=== PATIENT | male | born 1990 | race African-American/Black ===

== ENCOUNTER 2020-03-28 14:49 | Outpatient (REF) | payer SELFPAY | END 2020-03-28 14:50 | disposition home or self-care (01) | LOC: HO.LAB 14:49 | PROVIDERS: Visit Provider Internal Medicine | DX: Z20.828 Contact with and (suspected) exposure to other viral communicable diseases (principal) | CPT/HCPCS: 87635 ==

== ENCOUNTER 2023-11-01 14:17 | Observation (INO) | payer OTHER, SELFPAY ==
--- NOTE | ~2023-11-01 | XR_ITS ---
EXAMINATION: XR ABDOMEN KUB CLINICAL INDICATION: Incorrect count, intraoperative. COMPARISON: None available. TECHNIQUE: AP view of the abdomen. FINDINGS: There is mild shaped linear radiodense object projecting over the lower abdomen/pelvis roughly measures 12 cm concerning for possible metallic instruments foreign body in the patient or on the patient. No other foreign bodies identified. Nonspecific bowel gas pattern. XR/XR abdomen 1V IMPRESSION: Linear radiodense object projecting over the lower abdomen/pelvis concerning for POSSIBLE METALLIC INSTRUMENTS FOREIGN BODY IN THE PATIENT or on the patient clothing. Recommend clearing all object from patient's clothing and repeat x-ray. (Referring physician staff is being called, by physician staff assistance, to be alerted of the above critical findings and recommendations.) 11/02/2023 8:46 PM EM
--- NOTE | ~2023-11-01 | US_ITS ---
EXAMINATION: ULTRASOUND RIGHT LOWER QUADRANT CLINICAL INFORMATION: Right lower quadrant pain COMPARISON: None. TECHNIQUE: Grayscale ultrasound, color Doppler performed right lower quadrant. FINDINGS: Exam limited by bowel gas The appendix is not seen. Appendicitis cannot be excluded. No focal fluid collection. No inflammatory change. US/US appendix IMPRESSION: The appendix is not identified. Appendicitis cannot be excluded. No focal inflammatory change.
--- NOTE | ~2023-11-01 | XR_ITS ---
EXAMINATION: XR ABDOMEN KUB CLINICAL INDICATION: Mid abdominal pain following surgery. Question foreign body. COMPARISON: Most recent abdominal radiograph done earlier the same day. TECHNIQUE: AP views of the abdomen. FINDINGS: No radiopaque foreign body. Mild air and stool throughout the bowel. Nonobstructive bowel gas pattern. No abnormal soft tissue calcification. No acute osseous abnormality. XR/XR KUB IMPRESSION: 1. No radiopaque foreign body. 2. Nonobstructive bowel gas pattern.
--- NOTE | ~2023-11-01 | CT_ITS ---
EXAMINATION: CT ABDOMEN AND PELVIS WITH CONTRAST CLINICAL INFORMATION: Right lower quadrant pain. COMPARISON: Appendix ultrasound 11/01/2023 TECHNIQUE: Multidetector volumetric images were obtained from the superior aspect of the liver through the pubic symphysis following administration 100 mL of Omnipaque 350 intravenous contrast. Sagittal and coronal reformatted images were obtained on the technologist's workstation. Oral contrast: No This CT examination was performed using dose optimization techniques as appropriate, variously including the following: *Automated exposure control *Adjustment of mA and/or kV according to patient size (this includes techniques or standardized protocols for targeted exams where dose is matched to indication/reason for exam; i.e. extremities or head) *Use of iterative reconstruction technique DLP: 1206 mGy-cm FINDINGS: LUNG BASES: The visualized lung bases are unremarkable. LIVER, GALLBLADDER, AND BILIARY TREE: The liver is decreased in attenuation. Focus of hypoattenuation adjacent to the falciform ligament measuring 2.2 x 1.6 cm may represent focal fat. No biliary ductal dilatation is present. The gallbladder is unremarkable with no evidence of radiopaque gallstones, gallbladder wall thickening, or obvious pericholecystic inflammatory changes. PANCREAS: No ductal dilatation. SPLEEN: Not enlarged. ADRENAL GLANDS: No adrenal mass. KIDNEYS AND URETERS: The kidneys are symmetric in size and enhancement. No hydronephrosis. No perinephric stranding. BLADDER: Unremarkable. GASTROINTESTINAL TRACT: Thick-walled appendix with surrounding inflammatory changes in the right lower quadrant. The appendix measures up to 1.2 cm in thickness. No evidence of perforation or abscess. No small bowel obstruction. ABDOMINAL WALL: No significant hernia is appreciated. LYMPH NODES: Enlarged right lower quadrant mesenteric lymph nodes with largest measuring 1.2 x 1.3 cm and 1.1 x 1.7 cm. VASCULAR: Normal caliber abdominal aorta. PELVIC VISCERA: Prostatic utricle cyst. OSSEOUS STRUCTURES: No destructive bone lesions. CT/CT abdomen pelvis w IV con IMPRESSION: Findings most likely representing acute appendicitis. Enlarged right lower quadrant mesenteric lymph nodes. Surgical consultation is recommended. Hepatic steatosis with possible focal fatty infiltration along the falciform ligament.
[2023-11-01 15:05] VITALS: BP 131/89; PULSE 86; RESP 18; TEMP 36.2; O2SAT 99; BMI 39.7
--- NOTE | 2023-11-01 15:05 | ED.ABDPAIN ---
HPI - Abdominal Pain General Chief Complaint: Abdominal Pain Stated Complaint: Abd pain sent by urgent care Time Seen by Provider: 11/01/23 21:12 Source: patient Mode of arrival: ambulatory Limitations: no limitations History of Present Illness HPI narrative: 33 yold male with no pmh presents to the ED for umbilical to right lower quadrant pain for couple of days. Patient states nausea and vomitting. Patient denies any constipation, diarrhea, blood in stool, fever, chilss, or genitourinary symptoms. Related Data Home Medications ?Medication ?Instructions ?Recorded ?Confirmed bupropion HCl 300 mg 24 hr tablet, 300 mg PO DAILY 11/02/23 11/02/23 extended release Previous Rx's ?Medication ?Instructions ?Recorded oxycodone 5 mg tablet 5 mg PO Q4H PRN pain (scale score 11/03/23 7-10) #24 tabs Allergies Allergy/AdvReac Type Severity Reaction Status Date / Time No Known Allergies Allergy Verified 11/02/23 15:11 [No Known Allergies*] Review of Systems Review of Systems umbmlical and RLQ pain. Yes all other systems are reviewed and are negative PMF Past Medical History Medical History (Updated 11/02/23 @ 15:11 by Kristi Roy) Depression with anxiety ELLI (obstructive sleep apnea) Surgical History (Updated 11/02/23 @ 15:10 by Kristi Roy) H/O knee surgery S/P ACL repair Social History Social History Alcohol intake: current Alcohol intake frequency: other Comment: flat plate x-ray was done to verify no sharps were retained in the patient Patient Tobacco Use Status: Never used Tobacco Physical Exam ED Vital Signs: Vital Signs - 24 hr 11/01/23 16:43 11/01/23 21:12 11/02/23 01:43 Temperature 98.7 F 98.6 F 98.0 F Pulse Rate 82 96 76 Respiratory Rate 18 16 16 Blood Pressure 140/71 H 129/81 121/80 Pulse Oximetry 99 98 98 Oxygen Delivery Method Room Air Room Air Room Air 11/02/23 03:28 11/02/23 06:12 Temperature 98.2 F 98.8 F Pulse Rate 77 69 Respiratory Rate 16 16 Blood Pressure 122/69 132/64 Pulse Oximetry 97 98 Oxygen Delivery Method Room Air Room Air BMI result Body Mass Index 39.7 Const General: cooperative, healthy appearing, comfortable, no acute distress, well developed, alert, awake and Physically active Orientation/consciousness: oriented to person, oriented to place, oriented to time and patient oriented x3 [facility] Head: Yes normal to inspection, Yes No palpable skull fracture present, Yes normocephalic, Yes atraumatic and No abrasion Eyes General: appearance normal, both eyes and all related structures Neck Neck: Yes normal visual inspection, Yes full ROM, Yes no lymphadenopathy, Yes no meningeal signs, Yes trachea midline, Yes supple, No anterior neck swelling and No tender Chest Chest palpation & inspection: normal inspection of the chest Resp Effort & Inspection: normal respiratory effort and able to speak in complete sentences Auscultation: clear to auscultation bilaterally Cardio Jugular venous distension: no JVD Heart sounds: S1 normal heart sound present and S2 normal heart sound present GI Inspection: Yes normal to inspection Palpation (GI): Soft to palpation, not firm, Tenderness to palpation present (GI) in the RLQ and periumbilically, no guarding and not rigid General: No CVA tenderness and Yes no CVA tenderness Back/Spine/Pelvis Back: no CVA tenderness, No CVA tenderness and No back tenderness Skin General skin exam: no rashes or lesions noted, elasticity normal and turgor normal Neuro General: oriented to person, oriented to place, oriented to time, patient oriented x3, gait normal, tone normal, moves all extremities, Normal light touch and pain sensation, no meningeal signs, no focal motor deficits, CN's II-XI intact bilaterally and normal sensation to monofilament Extrem General: Yes normal to inspection, Yes full ROM and Yes capillary refill normal Psych Appearance: grossly normal, well kempt and not disheveled Course Course Course Narrative: This is an RME: Additional HPI, ROS, PE not included below will be deferred to primary provider. RME assessment and note performed by: Silvia Rodriguez PA-C This is a 55-rlgs[age]oxg-male, with no known medical problems, who presents to the ER with complaints of RLQ pain x2 days. Patient states that he has had right lower quadrant pain. Was seen at urgent care today and was told to come into the emergency room. Also endorsing nausea, vomiting and saw stool. No bloody or black stool. No urinary symptoms. Tenderness palpation in the right lower quadrant. No history of abdominal surgeries in the past. Plan: Labs, UA, ultrasound appendix ordered Medical Decision Making Medical Decision Making MDM Narrative: 33-year-old male with umbilical right lower quadrant tenderness without any genitourinary symptoms. Labs normal appendix ultrasound murmur or sent for CT scan of abdomen to make sure the appendicitis. 2:26am: CT scan shows appendicitis. Patient admitted to Dr. Ortiz of surgery. Patient given morphine for pain. Patient NPO Differential Diagnosis Differential Diagnoses: The differential diagnosis associated with the presentation includes (Appendicitis, cholecystitis) Admission/Observation Consideration of admission/observation: Escalation of care including admission/observation considered Consult Healthcare Provider Management of the patient was discussed with: [employer] Teacher (Dr. Kowalski) Lab Data [facility] Lab Attestation statement: I reviewed the patient's lab results. 11/01/23 16:16 11/01/23 16:16 Labs: Lab Results 11/01/23 11/02/23 Range/Units 16:16 00:29 WBC 9.6 (4.8-10.8) X10*3/uL RBC 5.34 (4.60-5.80) X10*6/uL Hgb 16.0 (14.0-18.0) g/dl Hct 47.1 (42.0-52.0) % MCV 88.2 (80.0-98.0) fL MCH 30.0 (27.0-33.0) pg MCHC 34.0 (31.0-36.0) g/dl RDW 13.1 (11.0-16.0) % Plt Count 320 (160-400) X10*3/uL MPV 10.0 (9.4-12.4) fL Immature Gran % (Auto) 0.5 H (0.0-0.4) % Neut % (Auto) 67.0 (45-73) % Lymph % (Auto) 23.0 (20-40) % [place] % (Auto) 7.8 (2-11) % Eos % (Auto) 1.2 (0-4) % Baso % (Auto) 0.5 (0-2) % Lymph # (Auto) 2.2 (1.2-4.9) X10*3/uL [place] # (Auto) 0.8 (0.1-1.2) X10*3/uL Eos # (Auto) 0.1 (0.0-0.4) X10*3/uL Baso # (Auto) 0.1 (0.0-0.2) X10*3/uL Abs Immat Gran (auto) 0.05 H (0.00-0.03) X10*3/uL Absolute Neuts (auto) 6.4 (2.0-8.3) x10*3/uL Absolute Nucleated RBC 0.000 (0.0-0.012) X10*3/uL Nucleated RBC % (auto) 0.0 (0.0-0.2) /100WBC Sodium 140 (135-145) mmol/L Potassium 4.0 (3.3-5.1) mmol/L Chloride 106 (96-108) mmol/L Carbon Dioxide 22 (22-29) mmol/L Anion Gap 16 (12-20) BUN 12 (9-16) mg/dL Creatinine 0.87 (0.5-1.4) mg/dL Estim Creat Clear Calc 179.9 Estimated GFR > 60 Random Glucose 92 (60-115) mg/dL Calcium 9.8 (8.4-10.2) mg/dL Total Bilirubin 0.6 (0.0-1.0) mg/dL Direct Bilirubin 0.2 (0.0-0.5) mg/dL AST 18 (5-37) U/L ALT 48 H (0-40) U/L Alkaline Phosphatase 55 (39-117) U/L Total Protein 8.0 (6.5-8.0) g/dL Albumin 4.6 (3.5-5.0) g/dL Lipase 21 (8-78) U/L Urine Color Yellow Urine Appearance Clear Urine pH 5.5 (5.0-9.0) Ur Specific [place] >= 1.030 H (1.005-1.025) Urine Protein 30 (1+) H (Neg-Trace) mg/dL Urine Glucose (UA) Negative (Negative) mg/dL Urine Ketones 15 (Negative) mg/dL Urine Blood Negative (Negative) Urine Nitrite Negative (Negative) Ur Leukocyte Esterase Negative (Negative) Urine RBC 0-2 (0-2) /HPF Urine WBC 0-5 (0-5) /HPF Ur Squamous Epith Cells 0-2 (0-2) /HPF Urine Bacteria None Seen (None Seen) Hyaline Casts 0-2 (0-2) /LPF Independent Interpretation I performed an independent interpretation of an: CT Scan Radiology Impression Discussion of test interpretation with radiology: I have reviewed the radiologist's reading. External Record Review External record reviewed: Other (Prior visits) Medications Administered Generic Name Dose Route Start Last Admin Trade Name Joy PRN Reason Stop Dose Admin Hydromorphone HCl 0.5 mg 11/02/23 08:20 11/02/23 08:47 Hydromorphone Hcl 1 Mg/Ml Syringe IVPUSH 0.5 mg Q4H PRN Administration Pain, Severe (Pain Scale 7-10) Protocol Lactated Ringer's 1,000 mls @ 100 mls/hr 11/02/23 08:30 11/03/23 04:52 Lr IVCONT Not Given .Q10H ANN Piperacillin Sod/Tazobactam 50 mls @ 100 mls/hr 11/02/23 08:30 11/03/23 03:19 Sod 3.375 gm/ Sodium Chloride IV Infused Q6H ANN Infusion Oxycodone HCl 5 mg 11/02/23 19:09 11/03/23 02:36 Oxycodone Hcl Immed Release 5 Mg Tablet PO 5 mg Q3H PRN Administration Pain, Severe (Pain Scale 7-10) Sodium Chloride 3 ml 11/02/23 16:00 11/03/23 00:18 0.9 % Sodium Chloride Flush 3 Ml Syringe IVFLUSH Not Given QSHIFT ANN Discontinued Medications Generic Name Dose Route Start Last Admin Trade Name Joy PRN Reason Stop Dose Admin Hydromorphone HCl 0.25 mg 11/02/23 15:58 11/02/23 18:35 Hydromorphone Hcl 0.5 Mg/0.5 Ml Syringe IVPUSH 11/02/23 21:59 0.25 mg Q5M PRN Administration Pain, Severe (Pain Scale 7-10) Protocol Iohexol 100 ml 11/01/23 22:20 11/01/23 22:21 Iohexol 350 Mg/Ml 100 Ml Infus..Btl IV 11/01/23 22:21 100 ml ONCE ONE Administration Ketorolac Tromethamine 30 mg 11/01/23 22:44 11/01/23 22:59 Ketorolac Tromethamine 30 Mg/Ml Vial IVPUSH 11/01/23 22:45 30 mg ONCE ONE Administration Morphine Sulfate 4 mg 11/02/23 02:25 11/02/23 02:47 Morphine Sulfate 4 Mg/Ml Cartridge IVPUSH 11/02/23 02:26 4 mg ONCE ONE Administration Protocol Critical Care Time Critical Care Time Critical Care Time: Yes Total Critical Care Time: 60 Attestation: positive appendicitis. IV pain meds ordered. Consulted with Surgeon Dr. Kowalski. Patient admitted to surgery service. Discharge Plan Discharge Clinical Impression: Acute appendicitis Patient Disposition: Admitted As Inpatient Interventions: Admission Worksheet (ED) Last Done: 11/02/23 15:14 Discharge Date/Time: 11/02/23 15:14
[2023-11-01 16:36] LABS: MANUAL DIFF FLAG NO
[2023-11-01 16:38] LABS: Basophils Absolute Auto 0.1 X10*3/uL (0.0-0.2); Basophils Percent Auto 0.5 % (0-2); Eosinophils Absolute Auto 0.1 X10*3/uL (0.0-0.4); Eosinophils Percent Auto 1.2 % (0-4); Hematocrit 47.1 % (42.0-52.0); Imm Gran Abs Auto 0.05 X10*3/uL (0.00-0.03); Imm Gran Pct Auto 0.5 % (0.0-0.4); Lymphocytes Absolute Auto 2.2 X10*3/uL (1.2-4.9); Mean Corpuscular Volume 88.2 fL (80.0-98.0); Monocytes Absolute Auto 0.8 X10*3/uL (0.1-1.2); Monocytes Percent Auto 7.8 % (2-11); Neutrophils Absolute Auto 6.4 x10*3/uL (2.0-8.3); Platelet Count 320 X10*3/uL (160-400); Red Blood Count 5.34 X10*6/uL (4.60-5.80); Red Cell Distribution Width 13.1 % (11.0-16.0); White Blood Count 9.6 X10*3/uL (4.8-10.8)
[2023-11-01 16:43] VITALS: BP 140/71; PULSE 82; RESP 18; TEMP 37.1; O2SAT 99
[2023-11-01 17:09] LABS: Alanine Aminotransferase 48 U/L (0-40); Albumin Level 4.6 g/dL (3.5-5.0); Alkaline Phosphatase 55 U/L (39-117); Anion Gap 16 (12-20); Aspartate Amino Transferase 18 U/L (5-37); Bilirubin Direct 0.2 mg/dL (0.0-0.5); Bilirubin Total 0.6 mg/dL (0.0-1.0); Blood Urea Nitrogen 12 mg/dL (9-16); Calcium 9.8 mg/dL (8.4-10.2); Carbon Dioxide 22 mmol/L (22-29); Chloride 106 mmol/L (96-108); Creatinine Clr Calc Pharmacy 179.9; Estimated Glomerular Filt Rate > 60; Glucose Random 92 mg/dL (60-115); Lipase 21 U/L (8-78); Sodium 140 mmol/L (135-145)
[2023-11-01 21:12] VITALS: BP 129/81; PULSE 96; RESP 16; TEMP 37; O2SAT 98
--- NOTE | 2023-11-01 21:47 | PC.NURSE ---
pt from home, ambulatory, a&ox4, respirations even and unlabored. pt reporting onset of middle upper epigastric pin x2 days. reports episodes of nausea and one episode of vomiting, with loose stool. pt reports poor PO intake due to nausea. pt denies chest pain and SOB. 20G placed in left AC.
[2023-11-01] MEDS: iohexoL 350 MG/ML 100 ML INFUS..BTL IV (22:21)
[2023-11-01] MEDS: Ketorolac Tromethamine 30 MG/ML VIAL IVPUSH (22:59)
[2023-11-02] VITALS (17 sets, daily range): BP systolic 121–155; BP diastolic 64–90; PULSE 69–86; RESP 14–19; TEMP 36.1–37.1; O2SAT 95–100
[2023-11-02 00:35] LABS: Appearance Urine Clear; Color Urine Yellow; Glucose Urine UA Negative (Negative); Leukocyte Esterase Urine Negative (Negative); Nitrite Urine Negative (Negative); PH 5.5 (5.0-9.0); Specific Gravity - Urine >= 1.030 (1.005-1.025); UMIC TRIGGER UACC YES; Urine Blood Negative (Negative); Urine Ketones 15 mg/dL (Negative); Urine Protein 30 (1+) mg/dL (Neg-Trace)
[2023-11-02 00:50] LABS: Bacteria Urine None Seen (None Seen); Hyaline Casts Urine 0-2 /LPF (0-2); RBC Urine 0-2 /HPF (0-2); Squamous Epithelial Cell Urine 0-2 /HPF (0-2); WBC Urine 0-5 /HPF (0-5)
[2023-11-02] MEDS: Morphine Sulfate 4 MG/ML CARTRIDGE IVPUSH (02:47)
--- NOTE | 2023-11-02 08:46 | PM.HPGS ---
History of Present Illness History of Present Illness Date of Service: 11/02/23 Chief complaint: acute appendicitis Narrative: Praful Poole is a 33 year old male with PMH significant for depression, ELLI on CPAP who presented to the ED with c/o RLQ abd pain. Patient reports he developed periumbilical pain on Wednesday. The pain eventually migrated to the RLQ and was associated with nausea and vomiting. The pain worsened prompting him to seek care at an urgent care center who recommended he be seen in the ED. Work up in the ED included CBC, BMP, LFTs which were WNL. CT scan abd/pelvis showed thick-walled, dilated appendix with surrounding inflammatory changes in the right lower quadrant. Review of Systems Constitutional: Constitutional: Denies chills and Denies fever(s) Cardiovascular: Cardiovascular: Denies chest pain, Denies palpitations and Denies dyspnea Respiratory: Respiratory: Denies dyspnea Gastrointestinal: Gastrointestinal: Reports as per HPI, Denies change in bowel habits and Denies diarrhea Integumentary/Breasts: Skin/Breast: Denies rash and Denies jaundice Endocrine: Endocrine: Denies palpitations [facility] Surgical History Surgical History (Updated 11/02/23 @ 08:49 by Denice Dial PA-C) S/P ACL repair Social History Social History Alcohol intake: current Alcohol intake frequency: a few times a month Smoked in Last 30 Days: No Use of substances other than those prescribed or required for medical reasons: No Advance Directives: No Advance Directives Information Provided: No Do you have a plan to hurt others: No Plan Meds Allergies Allergy/AdvReac Type Severity Reaction Status Date / Time No Known Allergies Allergy Verified 11/01/23 15:07 [No Known Allergies*] Active Medications: Current Medications Acetaminophen (Acetaminophen 325 Mg Tablet) 650 mg PO Q6H PRN PRN Reason: Pain, Mild (Pain Scale 1-3) Hydromorphone HCl (Hydromorphone Hcl 1 Mg/Ml Syringe) 0.5 mg IVPUSH Q4H PRN; Protocol PRN Reason: Pain, Severe (Pain Scale 7-10) Lactated Ringer's (Lr) 1,000 mls @ 100 mls/hr IVCONT .Q10H ANN Piperacillin Sod/Tazobactam (Sod 3.375 gm/ Sodium Chloride) 50 mls @ 100 mls/hr IV Q6H ANN Sodium Chloride (0.9 % Sodium Chloride Flush 3 Ml Syringe) 3 ml IVFLUSH QSHIFT ANN Home Medications ?Medication ?Instructions ?Recorded ?Confirmed ?Last Taken ?Type bupropion HCl 300 mg 24 hr tablet, 300 mg PO DAILY 11/02/23 11/02/23 Unknown History extended release Physical Exam Vital Signs: Vital Signs: Last Vital Signs Temp 98.8 F 11/02/23 06:12 Pulse 69 11/02/23 06:12 Resp 16 11/02/23 06:12 BP 132/64 11/02/23 06:12 Pulse Ox 98 11/02/23 06:12 O2 Del Method Room Air 11/02/23 06:12 BMI result Body Mass Index 39.7 Const: General: comfortable, no acute distress and alert Orientation/consciousness: patient oriented x3 Resp: Effort & Inspection: normal respiratory effort GI: Other: corpulent abdomen Inspection: No distended and No scar Palpation (GI): Soft to palpation, Tenderness to palpation present (GI) in the RLQ, at McBurney's point and with rebound tenderness; Rovsing's sign negative and no guarding Percussion: Yes normal to percussion Skin: General skin exam: no rashes or lesions noted and no jaundice Neuro: General: patient oriented x3 and moves all extremities Results Results Labs: Short CBC 11/01/23 Range/Units 16:16 WBC 9.6 (4.8-10.8) X10*3/uL Hgb 16.0 (14.0-18.0) g/dl Hct 47.1 (42.0-52.0) % Plt Count 320 (160-400) X10*3/uL BMP 11/01/23 16:16 Sodium 140 Potassium 4.0 Chloride 106 Carbon Dioxide 22 BUN 12 Creatinine 0.87 Calcium 9.8 Liver Function 11/01/23 Range/Units 16:16 Total Bilirubin 0.6 (0.0-1.0) mg/dL Direct Bilirubin 0.2 (0.0-0.5) mg/dL AST 18 (5-37) U/L ALT 48 H (0-40) U/L Alkaline Phosphatase 55 (39-117) U/L Albumin 4.6 (3.5-5.0) g/dL Urine 11/02/23 Range/Units 00:29 Urine Color Yellow Urine Appearance Clear Urine pH 5.5 (5.0-9.0) Ur Specific [place] >= 1.030 H (1.005-1.025) Urine Protein 30 (1+) H (Neg-Trace) mg/dL Urine Glucose (UA) Negative (Negative) mg/dL Abdomen CT scan report/results: report reviewed and image reviewed Assessment and Plan (1) Acute appendicitis: Status: Acute Plan 33 year old male with 4 day hx of abdominal pain now localized in the RLQ with marked RLQ tenderness point and CT scan showing dilated, thickened appendix consistent with acute appendicitis. The patient was admitted to the surgical service for further treatment of the acute appendicitis. Treatment options were discussed including observation and abx versus appendectomy. Risks, benefits, alternatives of laparoscopic possible open appendectomy were reviewed with the patient and included but not limited to bleeding, infection, numbness, pain, scarring, bowel or bladder injury or leak and the patient wishes to proceed. He will be added onto the OR schedule for today. He is NPO, started on IVF and IV zosyn. Quality Stroke Does the patient have a stroke diagnosis?: No VTE Prior VTE?: No VTE Risk Level:: Surgical - moderate VTE Device Contraindication: N/A - Device Ordered VTE Drug Contraindication: Treatment Not Indicated Procedures Date of Service Date of Service: 11/02/23
[2023-11-02] MEDS: Piperacillin Sodium/Tazobactam 3.375 GM in 0.9 % Sodium Chloride 50 ML IV ×3 (08:47→20:09)
[2023-11-02] MEDS: HYDROmorphone HCl 1 MG/ML SYRINGE 0.5 MG IVPUSH (08:47)
--- NOTE | 2023-11-02 08:49 | PHA.MEDREC ---
Pharmacy Consult ? Medication Reconciliation Pharmacy has completed the medication reconciliation.
--- NOTE | 2023-11-02 09:07 | PC.NURSE ---
medicated per the MAR, antibiotics infusing. requesting cpap machine as patient uses it for sleep. remains NPO at this time. call carlton within reach
[2023-11-02] MEDS: Lactated Ringers 1,000 ML 100 ML IVCONT ×2 (09:32→20:10)
--- NOTE | 2023-11-02 11:30 | PC.NURSE ---
Patient comes from ED with plan to get surgery for his appendicitis today. Patient is calm and cooperative with staff, independent ambulation, alert and oriented. Patient with 5/10 pain at this time in his right lower quadrant, tolerable at this time. States that the pain comes and goes, had woken him up a few times from sleep. Awaiting surgery time from OR at this time.
--- NOTE | 2023-11-02 15:18 | PC.NURSE ---
Patient arrived to preop from ED with one PRN angio, #20 Left AC. Site asymptomatic, flushed well.
--- NOTE | 2023-11-02 15:57 | P.CONAN_ITS ---
HPI - Anesthesia Eval Consult details Narrative: 33 M pf lap appy PMFSH Active Problems Active Problems: All Active Problems Acute appendicitis (Acute) Past Medical History Medical History (Updated 11/02/23 @ 15:11 by Kristi Roy) Depression with anxiety ELLI (obstructive sleep apnea) Family History Family history of problems with anesthesia: No Surgical History Surgical History (Updated 11/02/23 @ 15:10 by Kristi Roy) H/O knee surgery S/P ACL repair History of Problems with Anesthesia: No Social History Social History Alcohol intake: current Alcohol intake frequency: other Patient Tobacco Use Status: Never used Tobacco Meds Allergies Allergy/AdvReac Type Severity Reaction Status Date / Time No Known Allergies Allergy Verified 11/02/23 15:11 [No Known Allergies*] Active Medications: Current Medications Acetaminophen (Acetaminophen 325 Mg Tablet) 650 mg PO Q6H PRN PRN Reason: Pain, Mild (Pain Scale 1-3) Hydromorphone HCl (Hydromorphone Hcl 1 Mg/Ml Syringe) 0.5 mg IVPUSH Q4H PRN; Protocol PRN Reason: Pain, Severe (Pain Scale 7-10) Last Admin: 11/02/23 08:47 Dose: 0.5 mg Lactated Ringer's (Lr) 1,000 mls @ 100 mls/hr IVCONT .Q10H ANN Last Admin: 11/02/23 09:32 Dose: 100 mls/hr Piperacillin Sod/Tazobactam (Sod 3.375 gm/ Sodium Chloride) 50 mls @ 100 mls/hr IV Q6H ANN Last Infusion: 11/02/23 15:05 Dose: Infused Sodium Chloride (0.9 % Sodium Chloride Flush 3 Ml Syringe) 3 ml IVFLUSH QSHIFT [facility] Home Medications ?Medication ?Instructions ?Recorded ?Confirmed ?Last Taken ?Type bupropion HCl 300 mg 24 hr tablet, 300 mg PO DAILY 11/02/23 11/02/23 Unknown History extended release Exam Height,Weight and Vital Signs: Height 6 ft 2 in Weight 308 lb 13.882 oz Last Vital Signs Temp 97.1 F 11/02/23 15:12 Pulse 73 11/02/23 15:12 Resp 16 11/02/23 15:12 BP 154/84 H 11/02/23 15:12 Pulse Ox 98 11/02/23 15:12 O2 Del Method Room Air 11/02/23 15:12 Pertinent Lab Results Pertinent Lab Results: Laboratory Tests 11/01/23 11/02/23 16:16 00:29 WBC 9.6 RBC 5.34 Hgb 16.0 Hct 47.1 MCV 88.2 MCH 30.0 MCHC 34.0 RDW 13.1 Plt Count 320 MPV 10.0 Immature Gran % (Auto) 0.5 H Neut % (Auto) 67.0 Lymph % (Auto) 23.0 [place] % (Auto) 7.8 Eos % (Auto) 1.2 Baso % (Auto) 0.5 Lymph # (Auto) 2.2 [place] # (Auto) 0.8 Eos # (Auto) 0.1 Baso # (Auto) 0.1 Abs Immat Gran (auto) 0.05 H Absolute Neuts (auto) 6.4 Absolute Nucleated RBC 0.000 Nucleated RBC % (auto) 0.0 Sodium 140 Potassium 4.0 Chloride 106 Carbon Dioxide 22 Anion Gap 16 BUN 12 Creatinine 0.87 Estim Creat Clear Calc 179.9 Estimated GFR > 60 Random Glucose 92 Calcium 9.8 Total Bilirubin 0.6 Direct Bilirubin 0.2 AST 18 ALT 48 H Alkaline Phosphatase 55 Total Protein 8.0 Albumin 4.6 Lipase 21 Urine Color Yellow Urine Appearance Clear Urine pH 5.5 Ur Specific [place] >= 1.030 H Urine Protein 30 (1+) H Urine Glucose (UA) Negative Urine Ketones 15 Urine Blood Negative Urine Nitrite Negative Ur Leukocyte Esterase Negative Urine RBC 0-2 Urine WBC 0-5 Ur Squamous Epith Cells 0-2 Urine Bacteria None Seen Hyaline Casts 0-2 Airway Mallampati Class: II TM Dist: >3cm Neck ROM: Full Loose/Missing/Broken Teeth: No Assessment and Plan Assessment Anesthesia Assessment: Anesthesia Plan Discussed Final Anesthetic Review Family History of Problems with Anesthesia: No History of Problems with Anesthesia: No ASA Class: III Final Preanesthetic Review: No Changes in Pt Med Stat, Meds/Allgs Chart Reviewed, Consent Obtained/Reviewed and Anes Risks/Benef Reviewed Patient Risk: Intermediate Procedure Risk: Low Anesthetic Plan Anesthetic Plan: GA Disposition: Standard PACU
--- NOTE | 2023-11-02 17:44 | P.OP_ITS ---
Operative Note Operative Note Date of Service: 11/02/23 Narrative: Preoperative diagnosis: [] Acute appendicitis Postop diagnosis: [] Acute phlegmonous appendicitis Procedure [] laparoscopic appendectomy Surgeon: [] Dex Software Engineer Web Applications: [] Type of Anesthesia: [] General Indication for surgery: [] Very corpulent abdomen. Retrocecal phlegmonous locally inflamed appendix. No gross evidence of perforation. Findings: [] Patient brought to the operating room, placed on operative table supine position, after an adequate level of general anesthesia was induced, the patient's abdomen was prepped and draped in usual sterile fashion. Using a supraumbilical curvilinear incision, Andre technique was used to insufflate abdominal cavity to 15 mm of CO2. Lower midline and suprapubic ports were placed under direct laparoscopic view, the patient placed in Trendelenburg position, and tilted to the left. Findings were as noted above. Appendix was grasped and from surrounding retrocecal adhesions and brought onto the field. Mesentery was sequentially taken down using double firing of ligature device. Appendix was then transected the cecal base using endoscopic PHILL 45 stapler. Specimen was placed in an Endo-Catch bag, a retrieved through the umbilical port. Abdominal cavity was copiously irrigated, and secured hemostasis. All ports removed under direct laparoscopic view. Wounds were closed in the following manner; umbilical wound has fascia reapproximated using interrupted 0 Vicryl sutures. Skin wounds were closed using subcuticular 4-0 Vicryl sutures followed by Steri-Strips and sterile dressings. Wounds were infiltrated 0.5% Marcaine at completion. Sponge, needle, and instrument counts were reported correct. Patient tolerated the procedure well and emerged from anesthesia stable condition. EBL minimal
[2023-11-02] MEDS: HYDROmorphone HCl 0.5 MG/0.5 ML SYRINGE 0.25 MG IVPUSH ×3 (18:05→18:35)
--- NOTE | 2023-11-02 22:58 | PC.NURSE ---
[facility] called regarding post-op abdominal x-ray ? foreign body in abdomen. Patient is stable , no pain. Dr Helton notified, another repeat x-ray ordered stat, reading came back negative for foreign body, Dr Helton aware.
[2023-11-03] MEDS: oxyCODONE HCl Immed Release 5 MG TABLET PO ×2 (02:36→08:29)
[2023-11-03] MEDS: Piperacillin Sodium/Tazobactam 3.375 GM in 0.9 % Sodium Chloride 50 ML IV ×2 (02:37→08:24)
[2023-11-03 03:24] VITALS: BP 132/72; PULSE 60; RESP 16; TEMP 36; O2SAT 97
[2023-11-03 07:04] VITALS: BP 148/73; PULSE 64; RESP 18; TEMP 36.7; O2SAT 99
[2023-11-03] MEDS: Lactated Ringers 1,000 ML 100 ML IVCONT (08:25)
--- NOTE | 2023-11-03 09:24 | P.PNGS_ITS ---
Subjective Subjective Date of Service: 11/03/23 Interval history: Feels well, mild incisional pain. OOB to bathroom. Tolerating clears. Physical Exam 2 Vital Signs: Vital Signs: Last Vital Signs Temp 98.1 F 11/03/23 07:04 Pulse 64 11/03/23 07:04 Resp 18 11/03/23 07:04 BP 148/73 H 11/03/23 07:04 Pulse Ox 99 11/03/23 07:04 O2 Del Method CPAP 11/03/23 07:04 O2 Flow Rate 6 11/02/23 18:00 BMI result Body Mass Index 39.7 Const: General: comfortable, no acute distress and alert O rientation/consciousness: patient oriented x3 Resp: Effort & Inspection: normal respiratory effort GI: Inspection: No distended and Yes incision (dressings c/d/i) Palpation (GI): Soft to palpation and Tenderness to palpation present (GI) (mild incisional) Skin: General skin exam: no rashes or lesions noted Neuro: General: patient oriented x3 and moves all extremities Objective Data Active Medications Acetaminophen (Acetaminophen 325 Mg Tablet) 650 mg PO Q6H PRN PRN Reason: Pain, Mild (Pain Scale 1-3) Hydromorphone HCl (Hydromorphone Hcl 1 Mg/Ml Syringe) 0.5 mg IVPUSH Q4H PRN; Protocol PRN Reason: Pain, Severe (Pain Scale 7-10) Last Admin: 11/02/23 08:47 Dose: 0.5 mg Documented By: TONY Lactated Ringer's (Lr) 1,000 mls @ 100 mls/hr IVCONT .Q10H [facility] Last Admin: 11/03/23 08:25 Dose: 100 mls/hr Documented By: DENA Piperacillin Sod/Tazobactam (Sod 3.375 gm/ Sodium Chloride) 50 mls @ 100 mls/hr IV Q6H [facility] Last Infusion: 11/03/23 09:09 Dose: Infused Documented By: DENA Oxycodone HCl (Oxycodone Hcl Immed Release 5 Mg Tablet) 5 mg PO Q3H PRN PRN Reason: Pain, Severe (Pain Scale 7-10) Last Admin: 11/03/23 08:29 Dose: 5 mg Documented By: DENA Sodium Chloride (0.9 % Sodium Chloride Flush 3 Ml Syringe) 3 ml IVFLUSH QSHIFT ANN Last Admin: 11/03/23 08:22 Dose: Not Given Documented By: DENA Non-Admin Reason: IV Running Labs 11/01/23 16:16 11/01/23 16:16 Procedures Date of Service Date of Service: 11/03/23 Progress Note: A&P Assessment and plan (1) Acute appendicitis: Status: Acute (2) S/P laparoscopic appendectomy: Status: Acute Plan POD #1 s/p lap appy. Doing well post op, abd benign with appropriate post op tenderness, dressings clean and intact. Advance to solid diet, dc IVF. Encouraged oob/ambulation of halls. Stable for dc to home later today if tolerating diet. Patient comfortable with plan. Time Spent With Patient Time: Total time managing care of this patient today ____ minutes. Quality Stroke Does the patient have a stroke diagnosis?: No VTE Prior VTE?: No VTE Risk Level:: Surgical - moderate VTE Device Contraindication: N/A - Device Ordered VTE Drug Contraindication: Treatment Not Indicated
--- NOTE | 2023-11-03 11:41 | HO.POSTANES ---
Post Anesthesia Evaluation Post Anesthesia Evaluation Date of Service: 11/02/23 Vital Signs: Vital Signs Temp Pulse Resp BP Pulse Ox O2 Del Method 11/03/23 07:04 98.1 F 64 18 148/73 H 99 CPAP 11/03/23 03:24 96.8 F 60 16 132/72 97 CPAP Anesthesia: General Endotracheal-GETA Mental Status: Awake Pain Control: Satisfactory Nausea/Vomiting: None Hydration: Adequate Anesthesia-Related Issues: No Anes. Related Issues
--- NOTE | 2023-11-03 11:48 | MHC.CM.PN ---
Addendum entered by Maria Esther Noel RN 11/03/23 14:54: Medically cleared for dc home self care. Original Note: [facility] delivered. Patient lives in an apartment alone. Functionally independent. Uses CPAP. States he buys his supplies online and pays OOP. No PCP. [facility] PCP brochure provided. Discussed plan to establish care w/ PCP and request referral to sleep specialist to get a CPAP supplier and insurance coverage for supplies. No HCP. CM provided education and offered assistance. Patient declined. DP: Goal is home self care. Will dc later today if tolerating diet. Friend will provide transport home. CM will continue to follow.
--- NOTE | 2023-11-03 14:17 | P.DS_ITS ---
DS: Providers Provider Date of Service: 11/03/23 Date of admission: 11/02/23 08:20 Date of discharge: 11/03/23 Primary care physician: Mario Physician Attending physician on admission: Angelito Kowalski Attending physician on discharge: Angelito Kowalski DS: Diagnosis Discharge Diagnosis (1) Acute appendicitis: Status: Acute (2) S/P laparoscopic appendectomy: Status: Acute DS: Summary Hospital Course Hospital Course: HPI AT ADMISSION: Praful Poole is a 33 year old male with PMH significant for depression, ELLI on CPAP who presented to the ED with c/o RLQ abd pain. Patient reports he developed periumbilical pain on Wednesday. The pain eventually migrated to the RLQ and was associated with nausea and vomiting. The pain worsened prompting him to seek care at an urgent care center who recommended he be seen in the ED. Work up in the ED included CBC, BMP, LFTs which were WNL. CT scan abd/pelvis showed thick-walled, dilated appendix with surrounding inflammatory changes in the right lower quadrant. HOSPITAL COURSE: The patient was admitted to the surgical service for further treatment of the acute appendicitis. Treatment options were discussed and the patient wishes to proceed with surgery. He was added onto the OR schedule for that day. He was NPO, started on IVF and IV zosyn. On 11/02/23, a laparoscopic appendectomy was performed by Dr. Kowalski without complication. The patient tolerated the procedure well. He had an uncomplicated recovery course. On POD #1, he felt well with good pain control. HE was OOB and ambulating without difficulty. He was tolerating a solid diet. His abdomen was benign with appropriate post op tenderness and clean and intact dressings. He felt ready for discharge. He was discharged to home on 11/03/23 in stable condition. He is to follow up in the office in 1 week. Status at Discharge Functional status at discharge: independent ambulation Overall status at discharge: patient is progressing back to baseline Time Attestation Discharge Coordination Time (in mins): 30 Quality: Safe Use of Opioids Does Pt have an Active Cancer Diagnosis on the Problem List?: No Quality: Stroke Does the patient have a stroke diagnosis?: No Physical Exam Vital Signs: Vital Signs: Last Vital Signs Temp 98.1 F 11/03/23 07:04 Pulse 64 11/03/23 07:04 Resp 18 11/03/23 07:04 BP 148/73 H 11/03/23 07:04 Pulse Ox 99 11/03/23 07:04 O2 Del Method CPAP 11/03/23 07:04 O2 Flow Rate 6 11/02/23 18:00 BMI result Body Mass Index 39.7 Const: General: comfortable, no acute distress and alert Orientation/consciousness: patient oriented x3 Resp: Effort & Inspection: normal respiratory effort GI: Inspection: No distended and Yes incision (clean/intact dressings ) Palpation (GI): Soft to palpation and Tenderness to palpation present (GI) Skin: General skin exam: no rashes or lesions noted Neuro: General: patient oriented x3 and moves all extremities DS: Data Data Completed and Pending Pending studies at discharge: Pending at discharge 11/02/23 17:19 Surgical [PTH] Routine Discharge Plan Discharge Anticipated Discharge Date/Time: 11/03/23 07:43 Patient Disposition: Home, Self-Care Discharge Diagnosis: acute appendicitis Referrals: Angelito Kowalski MD [Physician] - 1 Week Physician,Mario Puente [Primary Care Provider] - 1 Week Discharge Medications: New docusate sodium [Colace] 100 mg capsule 100 mg PO BID Qty: 30 0RF oxycodone 5 mg tablet 5 mg PO Q4H PRN (Reason: pain (scale score 7-10)) Qty: 24 0RF Rx Instructions: Partial Fill upon patient request. Continued bupropion HCl 300 mg tablet extended release 24 hr 300 mg PO DAILY Discharge Orders: Discharge Order (Routine); Ordered 11/03/23 Ordered By: Denice Dial Diet: Advance to usual diet Activity on Discharge: No heavy lifting Stand Alone Forms: Patient Portal Discharge page, Work/School Release Print Language: Marshallese Activity Restrictions/Additional Instructions: Apply an ice pack for short intervals (20 minutes on, followed by at least 20 minutes off) for the first 2 days. Do not apply heat. Do not use creams, lotions, or topical antibiotics. These can cause infection or allergic reaction. Ok to shower 48 hours after your surgery. Remove dressings in 2 days and replace as needed. You have steri strips (small white cloth strips) covering your incision- these will fall off ~1 week. Follow up in office with Dr. Kowalski in 1 week. ([phone]) No heavy lifting (>10lbs) or strenuous activity! Call Your Doctor If: -Your temperature exceeds 101.5? F -You experience excessive pain or swelling -You have an unexpected reaction to medication -You have excessive bleeding -You experience continued vomiting/nausea -Your incision begins to separate -Your incision shows signs of infection such as increased redness, swelling, excessive pain, drainage (light blood or clear fluid is normal) or heat Care Plan Goals: Return to baseline health and resume normal activities following recovery period. Health Concerns: acute appendicitis Plan of Treatment: s/p laparoscopic appendectomy f/u in office in 1 week Assessment: doing well post op
== END 2023-11-03 16:19 | disposition home or self-care (01) ==
LOC: HO.ED 11-02 02:28 → HO.EDOVER 11-02 08:34 → HO.S3 11-02 18:45
PROVIDERS: Physician Assistant; Physician Assistant Medical; Admitting Provider Physician Assistant Surgical; Emergency Provider Internal Medicine; Visit Provider Surgery
PROC: 0DTJ4ZZ Resection of Appendix, Percutaneous Endoscopic Approach (ICD-10-PCS; CPT 44970; principal; 2023-11-02 16:00)
DX: K35.890 Other acute appendicitis without perforation or gangrene (principal); R10.31 Right lower quadrant pain; R11.2 Nausea with vomiting, unspecified; R10.33 Periumbilical pain; G47.33 Obstructive sleep apnea (adult) (pediatric); Z99.89 Dependence on other enabling machines and devices
CPT/HCPCS: 44970; 36415; 74018; 74177; 76705; 80048; 80076; 81001; 83690; 85025; 88304; 94660; 96361; 96365; 96366; 96375; 96376; 99221; 99285; J0131; J0330; J1100; J1170; J1885; J2250; J2270; J2405; J2543; J2704; J2795; J3010; J7120; Q9967

== ENCOUNTER → 2023-11-02 08:20 | Outpatient (BNV) | payer OTHER, SELFPAY | PROVIDERS: Admitting Provider Physician Assistant Surgical; Emergency Provider Internal Medicine; Visit Provider Physician Assistant Surgical | DX: K35.80 Unspecified acute appendicitis (principal) | CPT/HCPCS: 44970; 99024; 99222 ==

== ENCOUNTER 2023-11-09 14:05 | Outpatient (AMB) | payer OTHER, SELFPAY ==
--- NOTE | 2023-11-09 14:09 | MHC.OFFVIS ---
Intake Visit Reasons: s/p lap appy Intake Note: Patient here s/p lap appy. Reports incision healing well. Patient c/o: burning sensation from lower incision. No longer taking rx pain meds. 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 He is minimal incisional discomfort. He has tolerating a diet. Having bowel habits. He has a no other wound issues or complaints. pathology is benign. [facility] Medical History Depression with anxiety ELLI (obstructive sleep apnea) Surgical History S/P laparoscopic appendectomy (11/02/23) H/O knee surgery S/P ACL repair Social History Alcohol intake: current Alcohol intake frequency: other Comment: flat plate x-ray was done to verify no sharps were retained in the patient Patient Tobacco Use Status: Never used Tobacco service: No Physical Exam GI Other: Abdomen corpulent, soft, benign. All wounds clean dry and intact healing well Assessment & Plan Assessment & Plan (1) S/P laparoscopic appendectomy: Onset Date: 11/02/23 Comment: Dr. Angelito Kowalski Code(s): Z90.49 - Acquired absence of other specified parts of digestive tract Category: Surgical (2) Postop check: Code(s): Z09 - Encounter for follow-up examination after completed treatment for conditions other than malignant neoplasm Category: Surgical Plan Patient has been given local instructions, and will follow-up p.r.n.. He has a note to return to work on November 16 with 2 weeks light duty. All questions answered. Medications: Discontinued oxycodone Partial Fill upon patient request. Discontinued Reason: Patient no longer taking 5 mg PO Q4H PRN 24 tabs 0RF pain (scale score 7-10) Coding Level of Care Code Global (11556) Diagnoses S/P laparoscopic appendectomy Z90.49 Postop check Z09
== END 2023-11-09 14:28 | disposition home or self-care (01) ==
PROVIDERS: Visit Provider Surgery
DX: Z90.49 Acquired absence of other specified parts of digestive tract (principal); Z09 Encounter for follow-up examination after completed treatment for conditions other than malignant neoplasm
CPT/HCPCS: 99024

== ENCOUNTER → 2023-11-09 14:05 | Outpatient (BNVA) | payer OTHER, SELFPAY | PROVIDERS: Visit Provider Surgery ==

== ENCOUNTER 2023-12-06 09:33 | Outpatient (AMB) | payer OTHER, SELFPAY ==
--- NOTE | 2023-12-06 09:35 | MHC.PC.OV ---
Vital Signs 12/06/23 09:43 Height 6 ft 1 in Weight 300 lb BMI 39.6 BP 122/82 Blood Pressure Location Rt brachial Position Sitting Respiration 16 Pulse 89 Pulse Source Pulse Oximeter Temp Source Oral Pulse Oximetry (%) 98 Oxygen Delivery Method Room Air Intake Visit Reasons: Establish care and referral Intake Note: pt here to establish care and CPE. he is c/o bump on upper back and sleep apnea. Collarette Separator Required: No Allergies No Known Allergies [No Known Allergies*] Allergy (Verified 12/06/23 09:39) Tobacco use date assessed: 12/06/23 Dental Screening Dental Screen Date: 12/06/23 Did you have a dental visit in the last 12 months?: No Did you have a dental problem in the last 6 months where you did not have access to dental care?: Yes HPI HPI Comments History of Present Illness Details This is a 33-year-old male with a past medical history of severe sleep apnea and depression with anxiety presenting to establish care. He is due for a physical exam. ELLI-home sleep study diagnosed with severe ELLI around 2019. Paying out of pocket for online treatment and would like a referral to sleep medicine. He had appendix removed in October 2023 at [facility]. He is doing well postoperatively. He endorses a bump on his back since 2018. He thinks it has gotten a little bigger. It is tender touch. Denies trauma. His last practitioner thought it was a keloid. He is treated for depression and anxiety. He sought treatment online, but he has to pay out of pocket. He has a therapist and med provider. The patient takes Wellbutrin 300 mg XL daily. He's been taking this for four months. He is doing very well on it. In the past he tried Celexa which caused suicide ideation. Lexapro caused intolerable weight gain and sexual dysfunction. [facility] Medical History (Updated 12/06/23 @ 10:17 by RAPHAEL Thornton) Depression with anxiety ELLI (obstructive sleep apnea) Surgical History (Updated 11/09/23 @ 14:26 by Angelito Kowalski MD) S/P laparoscopic appendectomy (11/02/23) H/O knee surgery S/P ACL repair Family History (Updated 12/06/23 @ 09:59 by RAPHAEL Thornton) Mother Breast cancer Alcohol abuse Father Depression Alcohol abuse CAD (coronary artery disease) Maternal Grandmother Stomach cancer Social History Housing: Apartment Alcohol intake: current Alcohol intake frequency: other Comment: flat plate x-ray was done to verify no sharps were retained in the patient Patient Tobacco Use Status: Never used Tobacco e-Cigarette/Vaping Use: Never Used service: No Current occupational status: employed 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 Current occupational exposures/hazards: No Cognitive needs: No Hearing needs: No Vision needs: Yes Questionnaire PHQ-9 Over the last 2 weeks, how often have you been bothered by any of the following problems? 1. Little interest or pleasure in doing things: not at all 2. Feeling down, depressed, or hopeless: not at all 3. Trouble falling or staying asleep, or sleeping too much: more than half the days 4. Feeling tired or having little energy: more than half the days 5. Poor appetite or overeating: not at all 6. Feeling bad about yourself - or that you are a failure or have let yourself or your family down: not at all 7. Trouble concentrating on things, such as reading the newspaper or watching television: several days 8. Moving or speaking so slowly that other people could have noticed. Or the opposite - being so fidgety or restless that you have been moving around a lot more than usual: not at all 9. Thoughts that you would be better off or of hurting yourself in some way: not at all Total score: 5 Depression Screening Interpretation: Positive Depression Screening Follow-up: Existing condition and In treatment Depression Screening Done: Yes 26548 - PHQ-9 Billing: Yes Source: Developed by Drs. Iraj Yu, Cherie Valerio, David Mercado and colleagues, with an educational edwige from [employer]. Thrive Questionnaire Date Thrive assessed: 11/03/23 What is your living situation today?: I have a steady place to live Within the past 12 months, did the food you bought not last and you didn't have the money to get more?: Sometimes True Within the past 12 months, did you worry whether your food would run out before you got money to buy more?: Sometimes True Do you have trouble paying for medicines?: No Do you have trouble getting transportation to medical appointments?: No Do you have trouble paying your heating and electricity bill?: Yes Do you have trouble taking care of your child, family member or friend?: Yes Do you have trouble with day-to-day activities such as bathing, preparing meals, shopping, managing finances, etc.?: No Are you currently unemployed and looking for a job?: No Are you interested in more education?: Yes Please select the resources that you would like help with: None Currently or been in a relationship where the following occur: no concerns reported THRIVE Score: 3 AUDIT C Alcohol Use Questionnaire (AUDIT-C) 1. How often do you have a drink containing alcohol?: 2-3 times a week 2. How many drinks containing alcohol do you have on a typical day when you are drinking?: 3 or 4 3. How often do you have six or more drinks on one occasion?: Never Total Score: 4 CARRI-7 AMB Questionnaire CARRI-7 Date CARRI - 7 assessed: 12/06/23 Feeling nervous, anxious, or on edge: 2 = More than half the days Not being able to stop or control worryin = More than half the days Worrying too much about different things: 1 = Several days Trouble relaxin = Several days Being so restless that it is hard to sit still: 0 = Not at all Becoming easily annoyed or irritable: 1 = Several days Feeling afraid as if something awful might happen: 0 = Not at all Total CARRI-7 score (0-4 normal; 5-9 mild; 10-14 moderate; 15-21 severe): 7 Source: Developed by Drs. Iraj Yu, Cherie Valerio, David Mercado and colleagues, with an educational edwige from [employer]. CARRI-7 Assessment Billing CARRI-7 Assessment Tool: CARRI-7 Assessment 87518 Review of Systems Const Details: Constitutional: No unexplained weight loss, fever, chills, fatigue or night sweats. Eyes: No vision changes, blurry vision, double vision, eye pain, eye redness, eye discharge. ENT: No hearing loss, sneezing, congestion, runny nose or sore throat. Respiratory: No shortness of breath, cough or sputum production. Cardiovascular: No chest pain, chest pressure or chest discomfort. No palpitations or pedal edema. Gastrointestinal: No anorexia, nausea, vomiting or diarrhea. No abdominal pain or blood in stool. Genitourinary: No dysuria, hematuria, urinary frequency. Neurologic: No headache, dizziness, syncope, unilateral weakness, ataxia, numbness or tingling in the extremities. Musculoskeletal: No muscle pain, back pain, joint pain or swelling. Hematologic/Lymphatics: No bleeding or bruising. No painful lymph nodes. Skin: No rash or itching. Endocrine: No cold or heat intolerance. No polyuria or polydipsia. Psychiatric: see HPI. Physical exam (Primary Care) Vital Signs: Last Vital Signs Pulse 89 12/06/23 09:43 Resp 16 12/06/23 09:43 BP 122/82 12/06/23 09:43 Pulse Ox 98 12/06/23 09:43 Oxygen Delivery Method Room Air 12/06/23 09:43 BMI result Body Mass Index 39.6 Tobacco/Smoking Status: Tobacco use Status Tobacco use date assessed 12/06/23 12/06/23 09:54 Patient Tobacco Use Status Never used Tobacco 12/06/23 09:36 e-Cigarette/Vaping Use Never Used 12/06/23 09:54 PHQ-9: PHQ-9 Score PHQ-9: Total score 5 12/06/23 09:54 Depression Screening Interpretation: Positive Depression Screening Follow-up: Existing condition and In treatment Thrive Assessment: Date of Thrive Assessment Date Thrive assessed 11/03/23 12/06/23 09:36 Currently or been in a relationship where the following occur: no concerns reported Const Other: Constitutional: Alert, in no distress. Head: Normocephalic. Eyes: Pupils are equal, round and reactive to light. Extraocular muscles intact. Ear, Nose and Throat: Canals clear. TMs normal. Normal nasal mucosa. No nasal discharge. No oral lesions. Neck: Supple, Full range of motion. No lymphadenopathy. No palpable thyroid masses. Respiratory: Clear to auscultation. Cardiovascular: S1 S2 regular. No murmurs. Gastrointestinal: Abdomen soft, non-tender, non-distended. Normal bowel sounds. No palpable masses. Genitourinary: Pt deferred. States home exams normal. Neurologic: No focal neurological deficits. Symmetric patellar reflexes. Moves all extremities spontaneously. Sensation intact bilaterally. Skin: keloid-like lesion on upper back Musculoskeletal: No gross deformities. Normal range of motion. Extremities: Warm and well perfused. No clubbing, cyanosis or edema. 3+ peripheral pulses bilaterally. Psychiatric: Normal mood and affect Immunizations Boostrix Tdap 2.5 Lf unit-8 mcg-5 Lf/0.5 mL intramuscular syringe Performing Provider: RAPHAEL Thornton Performing Location: [facility] Administered by: Marlyn Rutledge RN on 12/06/23 10:27 Dose Route Admin Location Dispensed Lot Number Expiration Date NDC Director Immunology 0.5 mL IM Right Deltoid 0.5 mL [id number] 01/20/26 [id number] [email or web address] VIS Given Date VIS Provided VIS Publication Date 12/06/23 Single Vaccine 21 Eligibility Eligibility Date Funding Source Not [facility] Eligible 12/06/23 Private Assessment and Plan Assessment & Plan (1) Encounter for routine history and physical examination: Code(s): Z00.00 - Encounter for general adult medical examination without abnormal findings Plan: Patient is seen today for a routine physical. As part of this visit we reviewed the following issues, which are considered and essential part of preventative health in this age group: - Testicular cancer screening, which includes self exam teaching - Blood pressure screening annually - Cholesterol screening - Nutritional and exercise counseling - Counseling of injury prevention including fire prevention, smoke alarms and seat belt usage - Prevention of and/or testing for infectious diseases - declines screening - Education about skin cancer - Recommendations about immunizations - unsure of Tdap date ?2013 or 2014. Traveling to [place] soon. Administed Tdap. - Recommendation of an eye exam - Screening for substance abuse (2) ELLI (obstructive sleep apnea): Comment: with CPAP Code(s): G47.33 - Obstructive sleep apnea (adult) (pediatric) Plan: Continue CPAP. Weight loss recommended. Refer to sleep Medicine. (3) Skin Lesion: Code(s): L98.9 - Disorder of the skin and subcutaneous tissue, unspecified Plan: Referred to Dermatology. (4) Depression with anxiety: Code(s): F41.8 - Other specified anxiety disorders Plan: I told the patient I will take over his Wellbutrin. Refills sent. [facility] Orders: Orders Comprehensive Met. Panel Today E66.9 - Obesity, unspecified, Z00.00 - Encounter for general adult medical examination without abnormal findings, Z13.6 - Encounter for screening for cardiovascular disorders Lipid Panel Today E66.9 - Obesity, unspecified, Z00.00 - Encounter for general adult medical examination without abnormal findings, Z13.6 - Encounter for screening for cardiovascular disorders TSH reflex Free T4 Today E66.9 - Obesity, unspecified, Z00.00 - Encounter for general adult medical examination without abnormal findings, Z13.6 - Encounter for screening for cardiovascular disorders Complete Blood Count no Diff Today E66.9 - Obesity, unspecified, Z00.00 - Encounter for general adult medical examination without abnormal findings, Z13.6 - Encounter for screening for cardiovascular disorders TDaP Immunization Today Z23 - Encounter for immunization Referrals Sleep Medicine Referral G47.33 - Obstructive sleep apnea (adult) (pediatric) Psychology Referral F41.8 - Other specified anxiety disorders, Z00.00 - Encounter for general adult medical examination without abnormal findings Dermatology Referral G47.33 - Obstructive sleep apnea (adult) (pediatric), L98.9 - Disorder of the skin and subcutaneous tissue, unspecified Medications: New bupropion HCl XL 300 mg PO DAILY 90 tabs 1RF Coding Level of Care Code New Pt Prev Care 18-39yr(82851 Diagnoses Encounter for routine history and physical examination Z00.00 ELLI (obstructive sleep apnea) G47.33 Skin Lesion L98.9 Depression with anxiety F41.8 Additional Codes CARRI-7 Assessment Billing - CARRI-7 Assessment Tool: CARRI-7 Assessment 56937 ([id number])
[2023-12-06 09:43] VITALS: BP 122/82; PULSE 89; RESP 16; O2SAT 98; BMI 39.6
== END 2023-12-06 10:27 | disposition home or self-care (01) ==
PROVIDERS: PCP Physician Assistant Medical; Visit Provider Physician Assistant Medical
DX: Z00.00 Encounter for general adult medical examination without abnormal findings (principal); G47.33 Obstructive sleep apnea (adult) (pediatric); L98.9 Disorder of the skin and subcutaneous tissue, unspecified; Z23 Encounter for immunization; F41.8 Other specified anxiety disorders
CPT/HCPCS: 90471; 90715; 99385

== ENCOUNTER 2023-12-06 10:30 | Outpatient (REF) | payer OTHER, SELFPAY ==
[2023-12-06 12:25] LABS: Hematocrit 49.2 % (42.0-52.0); Hemoglobin 16.4 g/dl (14.0-18.0); Mean Corpuscular HGB Conc 33.3 g/dl (31.0-36.0); Mean Corpuscular Hemoglobin 29.3 pg (27.0-33.0); Mean Corpuscular Volume 87.9 fL (80.0-98.0); Mean Platelet Volume 10.4 fL (9.4-12.4); Platelet Count 345 X10*3/uL (160-400); Red Cell Distribution Width 13.2 % (11.0-16.0); White Blood Count 8.4 X10*3/uL (4.8-10.8)
[2023-12-06 13:24] LABS: Alanine Aminotransferase 72 U/L (0-40); Albumin Level 4.5 g/dL (3.5-5.0); Alkaline Phosphatase 55 U/L (39-117); Anion Gap 15 (12-20); Aspartate Amino Transferase 30 U/L (5-37); Bilirubin Total 0.3 mg/dL (0.0-1.0); Blood Urea Nitrogen 13 mg/dL (9-16); Calcium 9.9 mg/dL (8.4-10.2); Carbon Dioxide 24 mmol/L (22-29); Chloride 107 mmol/L (96-108); Cholesterol 227 mg/dL (<200); Estimated Glomerular Filt Rate > 60; Glucose Random 83 mg/dL (60-115); HDL Cholesterol 45 mg/dL (>40); LDL Cholesterol Calculated 151 mg/dL (<100); Potassium 3.9 mmol/L (3.3-5.1); Sodium 142 mmol/L (135-145); Total Protein 8.1 g/dL (6.5-8.0); Triglycerides 157 mg/dL (<150)
[2023-12-06 13:32] LABS: TSH reflex Free T4 1.62 uIU/mL (0.32-4.0)
== END 2023-12-06 10:31 | disposition home or self-care (01) ==
LOC: HO.WFDLDS 10:30
PROVIDERS: Visit Provider Physician Assistant Medical
DX: Z00.00 Encounter for general adult medical examination without abnormal findings (principal); Z13.6 Encounter for screening for cardiovascular disorders; E66.9 Obesity, unspecified
CPT/HCPCS: 36415; 80053; 80061; 84443; 85027

== ENCOUNTER 2024-01-27 10:51 | Outpatient (REF) | payer OTHER, SELFPAY ==
[2024-01-27 12:21] LABS: Alanine Aminotransferase 46 U/L (0-40); Albumin Level 4.6 g/dL (3.5-5.0); Alkaline Phosphatase 50 U/L (39-117); Aspartate Amino Transferase 20 U/L (5-37); Bilirubin Direct 0.2 mg/dL (0.0-0.5); Bilirubin Total 0.6 mg/dL (0.0-1.0); Total Protein 7.8 g/dL (6.5-8.0)
== END 2024-01-27 10:52 | disposition home or self-care (01) ==
LOC: HO.LAB 10:51
PROVIDERS: PCP Physician Assistant Medical; Visit Provider Physician Assistant Medical
DX: R79.89 Other specified abnormal findings of blood chemistry (principal)
CPT/HCPCS: 36415; 80076

== ENCOUNTER → 2024-01-27 14:54 | Outpatient (AMB) | payer OTHER, SELFPAY ==
--- NOTE | 2024-01-27 14:48 | A.OFFPC_ITS ---
Intake Visit Reasons: Discuss labs Allergies No Known Allergies [No Known Allergies*] Allergy (Verified 01/27/24 14:49) Tobacco use date assessed: 01/27/24 Dental Screening Dental Screen Date: 12/06/23 HPI HPI Comments History of Present Illness Details This is a 33-year-old male with a past medical history of severe sleep apnea, depression with anxiety, hyperlipidemia and elevated LFTs presenting to discuss lab results via telehealth. Elevated LFTs-see results below. Interval improvement since starting Wegovy and decreasing alcohol consumption. Upon further review he had a CT scan in October of 2023 when he was at the ER for appendicitis, and it showed hepatic steatosis. History of hyperlipidemia. ELLI-home sleep study diagnosed with severe ELLI around 2019. He has an appointment with sleep medicine but not until next year. His CPAP mask is 4 or 5 years old. He has taped together some of the supplies. Requests new CPAP. Patient prescribed Wegovy through [facility] wat[facility], but he would like to transfer the medication to this office. He has 2 more doses of 0.25 mg. Denies side effects. ROS: Gastrointestinal: No anorexia, nausea, vomiting or diarrhea. No abdominal pain PFSH Medical History (Updated 01/27/24 @ 15:59 by RAPHAEL Thornton) Obesity Hepatic steatosis LFT elevation Hyperlipidemia Depression with anxiety ELLI (obstructive sleep apnea) Surgical History (Updated 11/09/23 @ 14:26 by Angelito Kowalski MD) S/P laparoscopic appendectomy (11/02/23) H/O knee surgery S/P ACL repair Family History (Updated 12/06/23 @ 09:59 by RAPHAEL Thornton) Mother Breast cancer Alcohol abuse Father Depression Alcohol abuse CAD (coronary artery disease) Maternal Grandmother Stomach cancer Social History Housing: Apartment Alcohol intake: current Alcohol intake frequency: other Comment: flat plate x-ray was done to verify no sharps were retained in the patient Patient Tobacco Use Status: Never used Tobacco e-Cigarette/Vaping Use: Never Used service: No Current occupational status: employed 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 Current occupational exposures/hazards: No Cognitive needs: No Hearing needs: No Vision needs: Yes Questionnaire Thrive Questionnaire Date Thrive assessed: 11/03/23 CARRI-7 AMB Questionnaire CARRI-7 Date CARRI - 7 assessed: 12/06/23 Source: Developed by Drs. Iraj Yu, Cherie Valerio, David Mercado and colleagues, with an educational edwige from [employer] Physical exam (Primary Care) Tobacco/Smoking Status: Tobacco use Status Tobacco use date assessed 01/27/24 01/27/24 14:50 Patient Tobacco Use Status Never used Tobacco 01/27/24 14:50 e-Cigarette/Vaping Use Never Used 01/27/24 14:50 Thrive Assessment: Date of Thrive Assessment Date Thrive assessed 11/03/23 01/27/24 14:50 Telehealth Telehealth Telehealth Platform: Telephone Location of provider rendering services: practice address Location of patient: address on file Patient Identification confirmed using: Name, : Yes Telehealth method: voice only Patient verbally consented to treatment: Yes Patient verbally consented to billing insurance company: Yes Patient informed of any privacy concerns related to visit: Yes Minutes spent on Phone/Video with Pt.: 13 Results Reviewed Results Reviewed: Laboratory Tests 12/06/23 01/27/24 10:31 11:06 Random Glucose 83 AST 20 ALT 46 H Alkaline Phosphatase 50 Triglycerides 157 H Cholesterol 227 H LDL Cholesterol, Calc 151 H HDL Cholesterol 45 Assessment and Plan Assessment & Plan (1) Hepatic steatosis: Code(s): K76.0 - Fatty (change of) liver, not elsewhere classified (2) Hyperlipidemia: Code(s): E78.5 - Hyperlipidemia, unspecified Qualifiers: Hyperlipidemia type: mixed hyperlipidemia Qualified Code(s): E78.2 - Mixed hyperlipidemia (3) ELLI (obstructive sleep apnea): Comment: with CPAP Code(s): G47.33 - Obstructive sleep apnea (adult) (pediatric) (4) Obesity: Code(s): E66.9 - Obesity, unspecified Qualifiers: Obesity type: due to excess calories Obesity classification: unspecified obesity classification Serious obesity comorbidity presence: with serious comorbidity Qualified Code(s): E66.09 - Other obesity due to excess calories Plan Patient instructed to continue avoidance of alcohol, low-cholesterol diet and exercise at least 5 days per week for 30 minutes per day to promote weight loss. I will prescribe Wegovy. Side effects reviewed in detail with the patient. Re-evaluate fasting labs in 3 months. Check hepatitis serologies given elevated LFTs though this is likely due to alcohol consumption which he has decreased in hepatic steatosis. We will mail prescription for new CPAP/mask. He has an appointment in 2024 with sleep Medicine. Follow up in 3 months. Orders: Orders Hepatitis A,B,C Profile 3 Months K76.0 - Fatty (change of) liver, not elsewhere classified, R79.89 - Other specified abnormal findings of blood chemistry Lipid Panel 3 Months E78.5 - Hyperlipidemia, unspecified Alanine Aminotransferase 3 Months E78.5 - Hyperlipidemia, unspecified, R79.89 - Other specified abnormal findings of blood chemistry Aspartate Amino Transferase 3 Months E78.5 - Hyperlipidemia, unspecified, R79.89 - Other specified abnormal findings of blood chemistry Medications: New semaglutide (weight loss) (Wegovy) 0.5 mg (0.5 mL) subcut Q7D 2 mL 0RF CPAP (CPAP Machine/Device) As directed 1 ea 0RF Coding Level of Care Code Tele Est Pt Level 4 (99194) Complex EM visit Add On G2211 Diagnoses Hepatic steatosis K76.0 Mixed hyperlipidemia E78.2 Hyperlipidemia type: mixed hyperlipidemia ELLI (obstructive sleep apnea) G47.33 Obesity due to excess calories with serious comorbidity, unspecified classification E66.09 Obesity type: due to excess calories Obesity classification: unspecified obesity classification Serious obesity comorbidity presence: with serious comorbidity
== END ==
LOC: HO.HMGFM 14:54
PROVIDERS: PCP Physician Assistant Medical; Visit Provider Physician Assistant Medical
DX: K76.0 Fatty (change of) liver, not elsewhere classified (principal); E78.2 Mixed hyperlipidemia; G47.33 Obstructive sleep apnea (adult) (pediatric); E66.09 Other obesity due to excess calories
CPT/HCPCS: 99214

== ENCOUNTER 2024-03-28 14:39 | Outpatient (AMB) | payer OTHER, SELFPAY ==
--- NOTE | 2024-03-28 15:09 | MHC.OFFVIS ---
Vital Signs 03/28/24 15:10 Height 6 ft 1 in Weight 280 lb BMI 36.9 BP 118/78 Blood Pressure Location Rt brachial Position Sitting Intake Visit Reasons: INP: ELLI( Per MD) Intake Note: patient has a cpap and needs to establish care for his supplies Allergies No Known Allergies [No Known Allergies*] Allergy (Verified 03/28/24 15:12) Medication List - Last Reconciled 03/28/24 by Emily Moses MD bupropion HCl XL 300 mg PO DAILY CPAP (CPAP Machine/Device) As directed semaglutide (weight loss) (Wegovy) 1 mg (0.5 mL) subcut Q7D HPI Comments Details: 33y/o comes for sleep evaluation . Main complaints-Obstructive sleep apnea diagnosed in 2019 - on CPAP but does not get supplies He is responding to CPAP but due to lack of supplies unable to use it. Sleep questionnaire-without CPAP Difficulty falling asleep-yes Difficulty staying asleep-yes Number of [id number] Snoring-yes Witnessed apneas-yes Gasping arousals-yes Nocturia-no GERD-no Vivid dreams-no Acting out dreams -/no Abnormal behavior in sleep-no ABnormal movements in sleep-yes Morning headaches-no Excessive daytime sleepiness-yes Daytime naps- no restless legs- no Hallucinations- /no sleep paralysis- no Drop attacks- /no Sleep study-yes Results AHI O2 CPAP yes Sleep Hygiene- Sleep time 9pm Wake time 6am coffee/stimulant use none Phone Electronics use- some Exercise- none Bedroom comfort- good ESS PFSH Medical History Obesity Hepatic steatosis LFT elevation Hyperlipidemia Depression with anxiety ELLI (obstructive sleep apnea) Surgical History S/P laparoscopic appendectomy (11/02/23) H/O knee surgery S/P ACL repair Family History Mother Breast cancer Alcohol abuse Father Depression Alcohol abuse CAD (coronary artery disease) Maternal Grandmother Stomach cancer Social History Housing: Apartment Alcohol intake: current Alcohol intake frequency: other Comment: flat plate x-ray was done to verify no sharps were retained in the patient Patient Tobacco Use Status: Never used Tobacco e-Cigarette/Vaping Use: Never Used service: No Current occupational status: employed 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 Current occupational exposures/hazards: No Cognitive needs: No Hearing needs: No Vision needs: Yes Physical Exam Vital Signs: Last Vital Signs BP 118/78 03/28/24 15:10 BMI result Body Mass Index 36.9 Const General: cooperative, healthy appearing and comfortable Nutritional Appearance: obese Orientation/consciousness: patient oriented x3 Eyes Pupils: Equal, round and reactive pupils present Neuro Other: Mallampatti -grade 4 General: patient oriented x3, gait normal, tone normal, moves all extremities and no focal motor deficits Cranial nerves: Yes Facial sensation intact/muscles of mastication intact, Yes Equal, round and reactive pupils present, Yes Bilaterally intact EOM present, Yes Nystagmus not present, Yes Normal facial strength present, Yes Midline tongue present and Yes Symmetric palate elevation present Cognition (Neuro): normal cognition Gait exam (Neuro): Normal gait present Motor exam (neuro): 5/5 motor strength present throughout and Normal motor muscle tone present throughout Assessment & Plan Assessment & Plan (1) ELLI (obstructive sleep apnea): Comment: with CPAP Code(s): G47.33 - Obstructive sleep apnea (adult) (pediatric) Category: Medical Plan Reevaluate patient with a home sleep test Continue CPAP Orders: Orders RT home sleep study Today G47.10 - Hypersomnia, unspecified, G47.33 - Obstructive sleep apnea (adult) (pediatric), R06.83 - Snoring Coding Level of Care Code New Pt Level 4 (33427) Diagnoses ELLI (obstructive sleep apnea) G47.33
[2024-03-28 15:10] VITALS: BP 118/78; BMI 36.9
== END 2024-03-28 15:33 | disposition home or self-care (01) ==
PROVIDERS: PCP Physician Assistant Medical; Visit Provider Psychiatry & Neurology Neurology
DX: G47.33 Obstructive sleep apnea (adult) (pediatric) (principal)
CPT/HCPCS: 99204

== ENCOUNTER → 2024-03-28 14:39 | Outpatient (BNVA) | payer OTHER, SELFPAY | PROVIDERS: PCP Physician Assistant Medical; Visit Provider Psychiatry & Neurology Neurology ==

== ENCOUNTER → 2024-04-18 13:50 | Outpatient (BNVA) | payer OTHER, SELFPAY | PROVIDERS: PCP Physician Assistant Medical; Visit Provider Surgery ==

== ENCOUNTER 2024-04-21 08:00 | Outpatient (AMB) | payer OTHER, SELFPAY ==
--- NOTE | 2024-04-21 09:22 | A.OFFVIS_ITS ---
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 BMI 36.9: Details: Start time: 9.16am, End time: 10.01am ?I spent 40 minutes speaking with the patient on the phone plus an additional 5 minutes reviewing and updating records for a total of 45 minutes HPI Comments Details: Previous weight loss efforts: Wegovy for 5 months: 42lbs Wakes up: 5.30am, Sleeps: 9.15pm Breakfast: fruits Lunch: skips Dinner: 6pm (sea food, rice, beans, vegetables) Snacks: fast food around 1pm, 8pm (ice cream) Exercise: free weights Fluids: coffee: none, tea: 3/wk: 32oz (honey, or cold outside), soda: Nancy phil: 1/wk, juice: apple juice/orange juice 3-4/wk, ETOH: 2/wk (vodka or tequila with juice, 2-3 cups) PFSH Medical History (Updated 03/28/24 @ 15:29 by Emily Moses MD) Obstructive sleep apnea of adult Hypersomnia Snoring Obesity Hepatic steatosis LFT elevation Hyperlipidemia Depression with anxiety ELLI (obstructive sleep apnea) Surgical History S/P laparoscopic appendectomy (11/02/23) H/O knee surgery S/P ACL repair Family History (Updated 04/18/24 @ 14:07 by Winnie Kamara CMA) Mother Breast cancer Alcohol abuse Father Depression Alcohol abuse CAD (coronary artery disease) Maternal Grandmother Stomach cancer Son No problems noted. Son No problems noted. 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 Current occupational exposures/hazards: No Cognitive needs: No Hearing needs: No Vision needs: Yes Telehealth Telehealth Telehealth Platform: Telephone Location of provider rendering services: practice address Location of patient: address on file Patient Identification confirmed using: Name, : Yes Telehealth method: voice only Patient verbally consented to treatment: Yes Patient verbally consented to billing insurance company: Yes Patient informed of any privacy concerns related to visit: Yes Minutes spent on Phone/Video with Pt.: 45 Assessment & Plan Assessment & Plan (1) Obesity: Code(s): E66.9 - Obesity, unspecified Category: Medical Qualifiers: Obesity type: due to excess calories Obesity classification: unspecified obesity classification Serious obesity comorbidity presence: with serious comorbidity Qualified Code(s): E66.09 - Other obesity due to excess calories Plan: 1.? Plan for lap sleeve gastrectomy. If diaphragmatic or ventral hernias are present at time of surgery, these will be repaired laparoscopically as well. Risks and complications include possible conversion to an open procedure, anas tomotic leak, bleeding requiring transfusion, small bowel obstruction, , DVT and pulmonary embolism, cardiac, or pulmonary complications, as extermination supervisor complications such as anastomotic ulcer, insufficient weight loss and vitamin deficiencies. I emphasized the importance of close follow-up, adherence to instructions and good communication. 2. You will receive a link of our software ken to generate an individualized nutritional and exercise plan specific for you. Please send me a screenshot of the plans you will generate Meal to include lean meat (beef, fish, pork, turkey, chicken), or khmer yogurt, or egg whites, or beans with a salad with olive oil and fruits (berries, pears, apples, kiwi). Avoid salt, breads, potatoes, rice, pasta, desserts. ?3. If you choose shakes, each shake would be drunk slowly, like coffee in a period of 2 hours. ?4. If you choose bars, cut each bar in 4 pieces and eat each piece in 30min ?to make each bar last 2 hours. ?5. I emphasized the importance of measuring accurately the food portion and measure it when serving the food in plate ?6. The meal portions include a specific number of forks of meat and salad. You always eat the meat portion but you can replace up to half of salad/vegetables portion with rice, potatoes or pasta, or a fruit ?if you like. The less you do it the better weight loss will be. ?7. One full-size fork is what it can be scooped on the fork without falling aside and not what can be bit with the fork. Use regular forks like those you find in a typical restaurant. ?8.? Please send me weight measurements as soon as possible and then once a week. Always include your diet and exercise plan. 9. The best choice would be to purchase a stationary bike, elliptical or treadmill at home that can track calories. Let me know if you do so I can give you an exercise plan. ?10. Goal is to lose at least 1.5-2lbs per week ?11. Goal to lose 10% of your weight before surgery, which is about 28lbs. Ultimate weight goal: 250lbs before surgery 12. Please follow the diet plan exactly without any change. If you don't like something about the plan or you feel hungry you need to communicate with me so I can help you revise the plan. You should not change the plan yourself. 13. To be scheduled for EGD to assess the stomach's anatomy. The possibility of biopsies was discussed. Patient needs to avoid use of NSAIDs and aspirin for 1 week prior to EGD. Risks of perforation and bleeding was discussed with the patient. This will be an outpatient procedure with IV sedation. Orders: Orders Prothrombin Time INR Today E66.09 - Other obesity due to excess calories, E78.2 - Mixed hyperlipidemia, G47.33 - Obstructive sleep apnea (adult) (pediatric), K76.0 - Fatty (change of) liver, not elsewhere classified, R79.89 - Other specified abnormal findings of blood chemistry Vitamin B1 Today E66.09 - Other obesity due to excess calories, E78.2 - Mixed hyperlipidemia, G47.33 - Obstructive sleep apnea (adult) (pediatric), K76.0 - Fatty (change of) liver, not elsewhere classified, R79.89 - Other specified abnormal findings of blood chemistry Lipid Panel Today E66.09 - Other obesity due to excess calories, E78.2 - Mixed hyperlipidemia, G47.33 - Obstructive sleep apnea (adult) (pediatric), K76.0 - Fatty (change of) liver, not elsewhere classified, R79.89 - Other specified abnormal findings of blood chemistry Vitamin B12 Today E66.09 - Other obesity due to excess calories, E78.2 - Mixed hyperlipidemia, G47.33 - Obstructive sleep apnea (adult) (pediatric), K76.0 - Fatty (change of) liver, not elsewhere classified, R79.89 - Other specified abnormal findings of blood chemistry Partial Thromboplastin Time Today E66.09 - Other obesity due to excess calories, E78.2 - Mixed hyperlipidemia, G47.33 - Obstructive sleep apnea (adult) (pediatric), K76.0 - Fatty (change of) liver, not elsewhere classified, R79.89 - Other specified abnormal findings of blood chemistry Ferritin Today E66.09 - Other obesity due to excess calories, E78.2 - Mixed hyperlipidemia, G47.33 - Obstructive sleep apnea (adult) (pediatric), K76.0 - Fatty (change of) liver, not elsewhere classified, R79.89 - Other specified abnormal findings of blood chemistry Zinc Today E66.09 - Other obesity due to excess calories, E78.2 - Mixed hyperlipidemia, G47.33 - Obstructive sleep apnea (adult) (pediatric), K76.0 - Fatty (change of) liver, not elsewhere classified, R79.89 - Other specified abnormal findings of blood chemistry IRON PROFILE Today E66.09 - Other obesity due to excess calories, E78.2 - Mixed hyperlipidemia, G47.33 - Obstructive sleep apnea (adult) (pediatric), K76.0 - Fatty (change of) liver, not elsewhere classified, R79.89 - Other specified abnormal findings of blood chemistry Comprehensive Met. Panel Today E66.09 - Other obesity due to excess calories, E78.2 - Mixed hyperlipidemia, G47.33 - Obstructive sleep apnea (adult) (pediatric), K76.0 - Fatty (change of) liver, not elsewhere classified, R79.89 - Other specified abnormal findings of blood chemistry TSH reflex Free T4 Today E66.09 - Other obesity due to excess calories, E78.2 - Mixed hyperlipidemia, G47.33 - Obstructive sleep apnea (adult) (pediatric), K76.0 - Fatty (change of) liver, not elsewhere classified, R79.89 - Other specified abnormal findings of blood chemistry Vitamin A Today E66.09 - Other obesity due to excess calories, E78.2 - Mixed hyperlipidemia, G47.33 - Obstructive sleep apnea (adult) (pediatric), K76.0 - Fatty (change of) liver, not elsewhere classified, R79.89 - Other specified abnormal findings of blood chemistry Hemoglobin A1c Today E66.09 - Other obesity due to excess calories, E78.2 - Mixed hyperlipidemia, G47.33 - Obstructive sleep apnea (adult) (pediatric), K76.0 - Fatty (change of) liver, not elsewhere classified, R79.89 - Other specified abnormal findings of blood chemistry Type and Screen Today E66.09 - Other obesity due to excess calories, E78.2 - Mixed hyperlipidemia, G47.33 - Obstructive sleep apnea (adult) (pediatric), K76.0 - Fatty (change of) liver, not elsewhere classified, R79.89 - Other specified abnormal findings of blood chemistry C Reactive Protein Today E66.09 - Other obesity due to excess calories, E78.2 - Mixed hyperlipidemia, G47.33 - Obstructive sleep apnea (adult) (pediatric), K76.0 - Fatty (change of) liver, not elsewhere classified, R79.89 - Other specified abnormal findings of blood chemistry Vitamin D 25-OH Total Today E66.09 - Other obesity due to excess calories, E78.2 - Mixed hyperlipidemia, G47.33 - Obstructive sleep apnea (adult) (pediatric), K76.0 - Fatty (change of) liver, not elsewhere classified, R79.89 - Other specified abnormal findings of blood chemistry Complete Blood Count Auto Diff Today E66.09 - Other obesity due to excess calories, E78.2 - Mixed hyperlipidemia, G47.33 - Obstructive sleep apnea (adult) (pediatric), K76.0 - Fatty (change of) liver, not elsewhere classified, R79.89 - Other specified abnormal findings of blood chemistry Insulin Today E66.09 - Other obesity due to excess calories, E78.2 - Mixed hyperlipidemia, G47.33 - Obstructive sleep apnea (adult) (pediatric), K76.0 - Fatty (change of) liver, not elsewhere classified, R79.89 - Other specified abnormal findings of blood chemistry
[2024-04-21 09:36] VITALS: BMI 36.8
== END 2024-04-21 10:02 | disposition home or self-care (01) ==
LOC: HO.HBS 08:00
PROVIDERS: PCP Physician Assistant Medical; Visit Provider Surgery
DX: E66.09 Other obesity due to excess calories (principal)
CPT/HCPCS: 99204

== ENCOUNTER 2024-04-27 09:07 | Outpatient (AMB) | payer OTHER, SELFPAY ==
--- NOTE | 2024-04-27 09:20 | A.OFFVIS_ITS ---
Vital Signs 04/27/24 09:24 Height 6 ft 1 in Weight 285 lb 8 oz BMI 37.7 BP 106/50 L Blood Pressure Location Rt brachial Position Sitting Respiration 14 Pulse 90 Pulse Source Pulse Oximeter Pulse Oximetry (%) 98 Oxygen Delivery Method Room Air Intake Visit Reasons: hepatic steatosis, hyperlipidemia Intake Note: f/u labs and hepatic steatosis Allergies No Known Allergies [No Known Allergies*] Allergy (Verified 04/27/24 09:23) HPI Comments Details: This is a 33-year-old male with a past medical history of severe sleep apnea, depression with anxiety, hyperlipidemia and hepatic steatosis presenting for follow up. Hepatic steatosis/elevated LFTs- patient went on Wegovy. He has decreased alcohol to less than 7 drinks per week. Unfortunately insurance stopped covering Wegovy since I am not endocrinology or weight loss management. He had his 1st appointment with the weight loss management clinic at [facility]. Patient says he has an EGD scheduled. He has a history of hyperlipidemia. ELLI-home sleep study diagnosed with severe ELLI around 2019. He saw sleep medicine, and he has a sleep study scheduled this month. He is using a CPAP currently. ROS: Constitutional: No unexplained weight loss, fever, chills Respiratory: No shortness of breath Cardiovascular: No chest pain Gastrointestinal: No anorexia, nausea, vomiting or diarrhea. No abdominal pain Endocrine: No cold or heat intolerance. No polyuria or polydipsia. Physical exam: Constitutional: Alert, in no distress. Neck: Supple, Full range of motion. No lymphadenopathy Respiratory: Clear to auscultation. Cardiovascular: S1 S2 regular. No murmurs. Gastrointestinal: Abdomen soft, non-tender, non-distended. Normal bowel sounds. No palpable masses. Psychiatric: Normal mood and affect [facility] Medical History (Updated 03/28/24 @ 15:29 by Emily Moses MD) Obstructive sleep apnea of adult Hypersomnia Snoring Obesity Hepatic steatosis LFT elevation Hyperlipidemia Depression with anxiety ELLI (obstructive sleep apnea) Surgical History S/P laparoscopic appendectomy (11/02/23) H/O knee surgery S/P ACL repair Family History (Updated 04/18/24 @ 14:07 by Winnie Kamara CMA) Mother Breast cancer Alcohol abuse Father Depression Alcohol abuse CAD (coronary artery disease) Maternal Grandmother Stomach cancer Son No problems noted. Son No problems noted. 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 Current occupational exposures/hazards: No Cognitive needs: No Hearing needs: No Vision needs: Yes Physical Exam Vital Signs: Last Vital Signs Pulse 90 04/27/24 09:24 Resp 14 04/27/24 09:24 BP 106/50 L 04/27/24 09:24 Pulse Ox 98 04/27/24 09:24 Oxygen Delivery Method Room Air 04/27/24 09:24 BMI result Body Mass Index 37.7 Assessment & Plan Assessment & Plan (1) Hepatic steatosis: Code(s): K76.0 - Fatty (change of) liver, not elsewhere classified Category: Medical Plan: We discussed with the patient should avoid alcohol and follow a low-cholesterol, low-fat diet. Diet should be predominantly lean proteins and vegetables and fibrous fruits. Patient agreeable to recheck liver enzymes and have liver ultrasound with elastography. (2) ELLI (obstructive sleep apnea): Comment: with CPAP Code(s): G47.33 - Obstructive sleep apnea (adult) (pediatric) Category: Medical Plan: Sleep study scheduled. Seen by sleep medicine. He is using a CPAP. Continue efforts at weight loss. Continue to decrease alcohol consumption and ultimately he should avoid alcohol completely. (3) Obesity: Code(s): E66.9 - Obesity, unspecified Category: Medical Qualifiers: Obesity type: due to excess calories Obesity classification: unspecified obesity classification Serious obesity comorbidity presence: with serious comorbidity Qualified Code(s): E66.09 - Other obesity due to excess calories Plan: Patient now following with weight loss management. Plan Schedule physical exam in 12/01/2024. Orders: Orders US abdomen paredes w elastography Today K76.0 - Fatty (change of) liver, not elsewhere classified Coding Level of Care Code Est Pt Level 4 (27009) Complex EM visit Add On G2211 Diagnoses Hepatic steatosis K76.0 ELLI (obstructive sleep apnea) G47.33 Obesity due to excess calories with serious comorbidity, unspecified classification E66.09 Obesity type: due to excess calories Obesity classification: unspecified obesity classification Serious obesity comorbidity presence: with serious comorbidity
[2024-04-27 09:24] VITALS: BP 106/50; PULSE 90; RESP 14; O2SAT 98; BMI 37.7
== END 2024-04-27 09:44 | disposition home or self-care (01) ==
PROVIDERS: PCP Physician Assistant Medical; Visit Provider Physician Assistant Medical
DX: K76.0 Fatty (change of) liver, not elsewhere classified (principal); G47.33 Obstructive sleep apnea (adult) (pediatric); E66.09 Other obesity due to excess calories; Z68.37 Body mass index [BMI] 37.0-37.9, adult

== ENCOUNTER → 2024-04-27 09:07 | Outpatient (BNVA) | payer OTHER, SELFPAY | PROVIDERS: PCP Physician Assistant Medical; Visit Provider Physician Assistant Medical ==

== ENCOUNTER 2024-05-03 09:19 | Outpatient (REF) | payer OTHER, SELFPAY ==
--- NOTE | 2024-05-03 09:25 | ECG_ITS ---
Test Reason : obesity Blood Pressure : / mmHG Vent. Rate : 071 BPM Atrial Rate : 071 BPM P-R Int : 190 ms QRS Dur : 096 ms QT Int : 380 ms P-R-T Axes : 052 069 039 degrees QTc Int : 412 ms Normal sinus rhythm Normal ECG No previous ECGs available Referred By: Cy Edge Electronically Signed By:JUAN MANUEL NOYOLA MD
[2024-05-03 10:21] LABS: Basophils Percent Auto 0.4 % (0-2); Eosinophils Absolute Auto 0.1 X10*3/uL (0.0-0.4); Eosinophils Percent Auto 1.9 % (0-4); Hematocrit 44.2 % (42.0-52.0); Hemoglobin 14.9 g/dl (14.0-18.0); Imm Gran Abs Auto 0.04 X10*3/uL (0.00-0.03); Imm Gran Pct Auto 0.6 % (0.0-0.4); Lymphocytes Absolute Auto 2.3 X10*3/uL (1.2-4.9); Lymphocytes Percent Auto 33.4 % (20-40); MANUAL DIFF FLAG SCAN; Mean Corpuscular HGB Conc 33.7 g/dl (31.0-36.0); Mean Corpuscular Hemoglobin 29.4 pg (27.0-33.0); Mean Corpuscular Volume 87.2 fL (80.0-98.0); Mean Platelet Volume 11.4 fL (9.4-12.4); Monocytes Absolute Auto 0.5 X10*3/uL (0.1-1.2); Monocytes Percent Auto 7.7 % (2-11); Neutrophils Absolute Auto 3.8 x10*3/uL (2.0-8.3); PLT CLUMP 1; Red Blood Count 5.07 X10*6/uL (4.60-5.80); Red Cell Distribution Width 13.3 % (11.0-16.0); SCAN SMEAR FLAG 1
[2024-05-03 10:22] LABS: INTERNATIONAL NORM RATIO 1.1 (0.9-1.1); Prothrombin Time 12.5 SEC (10.9-12.4)
[2024-05-03 10:24] LABS: Partial Thromboplastin Time 28.2 SEC (26.0-36.8)
[2024-05-03 10:27] LABS: Estimated Average Glucose 100 mg/dL; Hemoglobin A1C 120.3161 umol/L; Hemoglobin A1c % 5.1 % (<6.0); Total Hemoglobin (HGBA1C) 3763.7331 umol/L
[2024-05-03 10:43] LABS: Platelet Count 240 X10*3/uL (160-400); SLIDE REVIEW VERIFIED; White Blood Count 6.8 X10*3/uL (4.8-10.8)
[2024-05-03 10:58] LABS: Alanine Aminotransferase 34 U/L (0-40); Albumin Level 4.4 g/dL (3.5-5.0); Alkaline Phosphatase 43 U/L (39-117); Anion Gap 12 (12-20); Aspartate Amino Transferase 20 U/L (5-37); Bilirubin Total 0.6 mg/dL (0.0-1.0); Blood Urea Nitrogen 16 mg/dL (9-16); C Reactive Protein 0.51 mg/dL (< or = 0.50); Calcium 9.3 mg/dL (8.4-10.2); Carbon Dioxide 23 mmol/L (22-29); Chloride 106 mmol/L (96-108); Cholesterol 189 mg/dL (<200); Estimated Glomerular Filt Rate > 60; Glucose Random 96 mg/dL (60-115); HDL Cholesterol 36 mg/dL (>40); Iron 115 mcg/dL (45-160); LDL Cholesterol Calculated 133 mg/dL (<100); Percent Iron Saturation 36 % (15-50); Potassium 4.2 mmol/L (3.3-5.1); Sodium 137 mmol/L (135-145); Total Iron Binding Capacity 321 mcg/dL (228-428); Total Protein 7.5 g/dL (6.5-8.0); Triglycerides 104 mg/dL (<150); Unsaturated Iron Binding 206 ug/dL
[2024-05-03 11:17] LABS: HBS Num1 > 1000.00 mIU/mL (0-7.99); HBc Num1 0.11 S/CO (0.00-0.79); HBsAGNum1 0.38 S/CO (0.00-0.99); Hepatitis A Antibody IgM 0.18 Index (0-0.79); Hepatitis B Core Antibody Nonreactive (Nonreactive); Hepatitis B Surface Antigen Negative (Negative); ~HepC Num1 0.13 S/CO (0.00-0.79); ~Hepatitis A Antibody IgM Nonreactive (Nonreactive); ~Hepatitis B Surface Antibody REACTIVE (Nonreactive); ~Hepatitis C Antibody Nonreactive (Nonreactive)
[2024-05-03 11:18] LABS: Vitamin B12 393 pg/mL (200-900)
[2024-05-03 11:21] LABS: Ferritin 248 ng/mL (20-250); Insulin 14 uU/mL (2-29); TSH reflex Free T4 0.84 uIU/mL (0.32-4.0); Vitamin D 25-OH Total 14.5 ng/mL (>30)
[2024-05-07 17:09] LABS: Zinc 68 mcg/dL (60-130)
[2024-05-08 06:44] LABS: Vitamin B1 <6 nmol/L (8-30)
[2024-05-11 03:34] LABS: Vitamin A 47 mcg/dL (38-98)
== END 2024-05-03 09:20 | disposition home or self-care (01) ==
LOC: HO.XRAY 09:19
PROVIDERS: PCP Physician Assistant Medical; Visit Provider Surgery
DX: E66.09 Other obesity due to excess calories (principal); E78.2 Mixed hyperlipidemia; K76.0 Fatty (change of) liver, not elsewhere classified; R79.89 Other specified abnormal findings of blood chemistry; E78.5 Hyperlipidemia, unspecified; G47.33 Obstructive sleep apnea (adult) (pediatric)
CPT/HCPCS: 36415; 71046; 80053; 80061; 82306; 82607; 82728; 83036; 83525; 83540; 84425; 84443; 84590; 84630; 85025; 85610; 85730; 86140; 86704; 86706; 86709; 86803; 87340; 93005

== ENCOUNTER → 2024-05-03 09:25 | Outpatient (BNV) | payer OTHER, SELFPAY | PROVIDERS: PCP Physician Assistant Medical; Visit Provider Internal Medicine Cardiovascular Disease | DX: E66.09 Other obesity due to excess calories (principal) | CPT/HCPCS: 93010 ==

== ENCOUNTER → 2024-05-09 08:12 | Outpatient (REF) | payer OTHER, SELFPAY | LOC: HO.SL 08:12 | PROVIDERS: PCP Physician Assistant Medical; Visit Provider Psychiatry & Neurology Neurology | DX: G47.33 Obstructive sleep apnea (adult) (pediatric) (principal); G47.10 Hypersomnia, unspecified; R06.83 Snoring | CPT/HCPCS: 95806 ==

== ENCOUNTER → 2024-05-10 08:37 | Outpatient (BNV) | payer OTHER, SELFPAY | PROVIDERS: PCP Physician Assistant Medical; Visit Provider Psychiatry & Neurology Neurology | DX: G47.33 Obstructive sleep apnea (adult) (pediatric) (principal) | CPT/HCPCS: 95806 ==

== ENCOUNTER 2024-05-10 12:50 | Day surgery (SDC) | payer OTHER, SELFPAY ==
[2024-05-08 09:46] VITALS: BMI 36.8
--- NOTE | 2024-05-09 08:36 | P.CONAN_ITS ---
Documented by User: Hannah Vaz NP 05/09/24 08:36 HPI - Anesthesia Eval Consult details Narrative: 33yo M for Upper Endoscopy PMFSH Active Problems Active Problems: All Active Problems Obstructive sleep apnea of adult (Acute) Hypersomnia (Acute) Snoring (Acute) Obesity (Acute) Hepatic steatosis (Acute) LFT elevation (Acute) Hyperlipidemia (Acute) Depression with anxiety (Acute) ELLI (obstructive sleep apnea) (Acute) Postop check (Acute) S/P laparoscopic appendectomy (Acute 11/02/23) Past Medical History Medical History Obstructive sleep apnea of adult Hypersomnia Snoring Obesity Hepatic steatosis LFT elevation Hyperlipidemia Depression with anxiety ELLI (obstructive sleep apnea) Family History Family History Mother Breast cancer Alcohol abuse Father Depression Alcohol abuse CAD (coronary artery disease) Maternal Grandmother Stomach cancer Son No problems noted. Son No problems noted. Family history of problems with anesthesia: No Surgical History Surgical History History of laparoscopic appendectomy H/O knee surgery S/P ACL repair History of Problems with Anesthesia: No Social History Social History Housing: Apartment Are you a primary post acute care registered nurse to a significant other at home: No Do you presently have visiting nurse or other home services: No Alcohol intake: current Alcohol intake frequency: a few times a week Comment: flat plate x-ray was done to verify no sharps were retained in the patient Patient Tobacco Use Status: Never used Tobacco e-Cigarette/Vaping Use: Never Used Use of substances other than those prescribed or required for medical reasons: No Have you been hit, kicked, punched, or otherwise hurt by someone within the past year? 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 Current occupational exposures/hazards: No Cognitive needs: No Hearing needs: No Vision needs: Yes Meds Allergies Allergy/AdvReac Type Severity Reaction Status Date / Time No Known Allergies Allergy Verified 05/10/24 13:11 [No Known Allergies*] Exam Height,Weight and Vital Signs: Height 6 ft 1 in Weight 126.552 kg Assessment and Plan Assessment Anesthesia Assessment: Chart Reviewed Final Anesthetic Review Family History of Problems with Anesthesia: No History of Problems with Anesthesia: No Documented by User: Risa Traylor MD 05/10/24 13:38 PMFSH Past Medical History Medical History Obstructive sleep apnea of adult Hypersomnia Snoring Obesity Hepatic steatosis LFT elevation Hyperlipidemia Depression with anxiety ELLI (obstructive sleep apnea) Family History Family History Mother Breast cancer Alcohol abuse Father Depression Alcohol abuse CAD (coronary artery disease) Maternal Grandmother Stomach cancer Son No problems noted. Son No problems noted. Surgical History Surgical History History of laparoscopic appendectomy H/O knee surgery S/P ACL repair Social History Social History Housing: Apartment Are you a primary post acute care registered nurse to a significant other at home: No Do you presently have visiting nurse or other home services: No Alcohol intake: current Alcohol intake frequency: a few times a week Comment: flat plate x-ray was done to verify no sharps were retained in the patient Patient Tobacco Use Status: Never used Tobacco e-Cigarette/Vaping Use: Never Used Use of substances other than those prescribed or required for medical reasons: No Have you been hit, kicked, punched, or otherwise hurt by someone within the past year? 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 Current occupational exposures/hazards: No Cognitive needs: No Hearing needs: No Vision needs: Yes Meds Allergies Allergy/AdvReac Type Severity Reaction Status Date / Time No Known Allergies Allergy Verified 05/10/24 13:11 [No Known Allergies*] Exam Airway Mallampati Class: III TM Dist: >3cm Neck ROM: Full Loose/Missing/Broken Teeth: No Heart: RRR Lungs: CTA Assessment and Plan Final Anesthetic Review NPO: Yes ASA Class: III Final Preanesthetic Review: Meds/Allgs Chart Reviewed, Consent Obtained/Reviewed and Anes Risks/Benef Reviewed Patient Risk: Intermediate Procedure Risk: Intermediate Anesthetic Plan Anesthetic Plan: MAC: Disposition: Standard PACU
[2024-05-10 13:13] VITALS: BP 131/83; PULSE 73; RESP 16; TEMP 36.9; O2SAT 97; BMI 38.1
[2024-05-10] MEDS: Lactated Ringers 1,000 ML 80 ML IVCONT (13:25)
--- NOTE | 2024-05-10 13:35 | PM.OP ---
Brief Operative Note Date of Service: 05/10/24 Pre-op diagnosis: Severe obesity Post-op diagnosis: same Procedure: PROCEDURE DATE: 05/10/2024 PREOPERATIVE DIAGNOSIS: Severe obesity POSTOPERATIVE DIAGNOSIS: ?Same as above. 1) small hiatal hernia PROCEDURE: [id number] with biopsies Surgeon: ?Caleb Edge M.D.. Ph.D. Hydraulic Lift Operator: None ? Anesthesia: IV sedation Estimated blood loss: ?Minimal FINDINGS AND PROCEDURE: ? OPERATIVE INDICATIONS: ?The patient is a 33 year old male known to me who is interested in bariatric surgery. Based on this information I recommended an upper endoscopy to evaluate the stomach's anatomy. Risks and complications of the surgery were discussed with the patient in advance particularly the possibility of perforation or bleeding that may require surgical intervention. The patient understood the risks and was in agreement with the plan. ? PROCEDURE: After informed consent was obtained by the patient, the patient was ?transferred to the Operating Room and was placed in the supine position.? After successful induction of IV sedation, a mouth block was inserted and the patient was placed in the left lateral decubitus position. An upper endoscopy was performed next, the oropharynx and esophagus appeared within the normal limits. There was a small 2-3cm hiatal hernia. The z-line was smooth. Two biopsies were obtained from the distal esophagus 2-3 cm proximal to the GE junction and two additional biopsies from the GE junction. The stomach was entered and it appeared to be of normal size. There was no gastritis. There was no stricture or ulcer. A biopsy was obtained from the gastric fundus and antrum. No significant bleeding was noted from any of the biopsy sites. Retroflexion of the scope confirmed the presence of the diaphragmatic hernia. The scope was then advanced into the duodenum which appeared to be normal as well. At that point the duodenum ?and the stomach were decompressed and the scope was withdrawn from the patient's mouth. The patient extubated and was transferred in stable condition to the Recovery Room for further care. I was present and performed all steps of the procedure. There were no residents to assist with this case. Caleb Edge M.D., Ph.D. Surgeon: Cy Edge MD Anesthesia: MAC Was an Hydraulic Lift Operator used for this Procedure?: No Estimated blood loss (mL): 0 IV fluids (mL): 400 Urine output (mL): 0 Pathology: other (1) antrum x1, 2) fundus x1, 3) GE junction x2, 4) distal esophagus x2) Condition: stable Disposition: PACU
--- NOTE | 2024-05-10 13:41 | MHC.SHP ---
Pre-Procedural Eval Section A - 24 Hr Update-Section A only Date of Service: 05/10/24 The patient is an INPATIENT: No The patient has been examined within 24 hours of the surgical procedure. The History & Physical has been completed within 30 days and I have reviewed it.: Yes Section B - Complete if H&P > 30 days Chief Complaint: Morbid (severe) obesity due to excess calories Relevant Family History (Specify if Yes): No Relevant Social History: None Present Medications: None Medical History: No relevant PMH History of Previous Operations: No relevant previous surgery Allergies: Allergies Allergy/AdvReac Type Severity Reaction Status Date / Time No Known Allergies Allergy Verified 05/10/24 13:11 [No Known Allergies*] Review of Systems Sugical H&P ROS: Negative: Constitution, Cardiovascular, Respiratory, Neurological, Psychiatric, Hem-Onc, Allergic/Immunologic, Gastrointestinal, Genitourinary, Musculoskeletal, Integumentary, Endocrine and Eyes/Ears/Nose/Throat Exam Surgical H&P Exam: Normal: HEENT, Normal: Heart, Normal: Lungs, Normal: Extremities, Normal: Abdomen, Normal: Skin and Normal: Neurological Plan Diagnosis/Plan: Unchanged (EGD to assess the stomach's anatomy. Risks of bleeding and perforation were discussed with the patient and he is in agreement with the plan.) I have reviewed the history and physical and performed a pertinent physical examination on my patient. No changes have occurred unless specified. Time Spent With Patient Time: Total time managing care of this patient today ____ minutes.
[2024-05-10 14:07] VITALS: BP 118/75; PULSE 106; RESP 18; TEMP 37.1; O2SAT 97
[2024-05-10 14:22] VITALS: BP 137/48; PULSE 94; RESP 18; TEMP 37.1; O2SAT 97
== END 2024-05-10 14:51 | disposition home or self-care (01) ==
PROVIDERS: PCP Physician Assistant Medical; Visit Provider Surgery
PROC: 0DJ08ZZ Inspection of Upper Intestinal Tract, Via Natural or Artificial Opening Endoscopic (ICD-10-PCS; CPT 43235; principal; 2024-05-10 14:20)
DX: E66.01 Morbid (severe) obesity due to excess calories (principal); K44.9 Diaphragmatic hernia without obstruction or gangrene; Z68.36 Body mass index [BMI] 36.0-36.9, adult; K76.0 Fatty (change of) liver, not elsewhere classified; R79.89 Other specified abnormal findings of blood chemistry; E78.2 Mixed hyperlipidemia; G47.33 Obstructive sleep apnea (adult) (pediatric); F41.8 Other specified anxiety disorders; Z99.89 Dependence on other enabling machines and devices; Z79.899 Other long term (current) drug therapy; Z98.890 Other specified postprocedural states
CPT/HCPCS: 43239; 88305; 88342; J2003; J2250; J2704

== ENCOUNTER → 2024-05-10 12:50 | Outpatient (BNV) | payer OTHER, SELFPAY | PROVIDERS: PCP Physician Assistant Medical; Visit Provider Surgery | DX: K44.9 Diaphragmatic hernia without obstruction or gangrene (principal) | CPT/HCPCS: 43239 ==

== ENCOUNTER 2024-05-19 11:57 | Outpatient (AMB) | payer OTHER, SELFPAY ==
--- NOTE | 2024-05-19 12:00 | A.OFFWM_ITS ---
Intake Intake Visit Reasons: (OV) BH Intake Allergies No Known Allergies [No Known Allergies*] Allergy (Verified 05/10/24 13:11) PFSH Medical History Obstructive sleep apnea of adult Hypersomnia Snoring Obesity Hepatic steatosis LFT elevation Hyperlipidemia Depression with anxiety ELLI (obstructive sleep apnea) Surgical History History of laparoscopic appendectomy H/O knee surgery S/P ACL repair Family History Mother Breast cancer Alcohol abuse Father Depression Alcohol abuse CAD (coronary artery disease) Maternal Grandmother Stomach cancer Son No problems noted. Son No problems noted. 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 Current occupational exposures/hazards: No Cognitive needs: No Hearing needs: No Vision needs: Yes Behavioral Health Assessment Weight Management Therapy Therapy Notes Details PT is a 33 years old male, who presents for a visit to complete BH assessment as part of surgical weight loss program. PT reports s history of being on and off in mental health counseling since age 8 due to family issues and being removed from home. As an adult the last tie he was in therapy was last year, but his PCP is currently prescribing with medications to treat symptoms of depression. PT disclosed Sx of trauma and depression, but functioning very well. PT denied past hospitalization/crisis for behavioral health, reported no history or recent safety concerns around SI/SA and/or self-harm/other-harm, also there is no history of substance use. Current PHQ-9 scores were High so we will repeated at next visit. MSE within normal limits today, indicating intact functioning PT is not cleared yet, we will meet again to finish assessment Presenting Concerns Referral Source WMP Provider. PT initially refered by his PCP. Reason for referral Completion of behavioral health assessment as part of process for weight-loss surgery. Precipitating Event Obesity. Living Situation Current Living Situation Rent Food/Weight/Diet Expectations of change Initial Goal to lose 10% of his weight before surgery, which is about 28lbs. Ultimate weight goal: 250lbs before surgery initial weight on 04/21/2024 was 279Lbs Most recent weight: 284Lbs PT is implementing the following: Current meal plan: 6 Shakes (8oz milk and 1 or 1.5 scoop of protein power) and 1 meal (9F/9F) Exercise plan: 2 mile walk 2-3 times at week, some walks at work. History/Relationship with food Example of meals before starting the program: Breakfast: Lunch: Dinner: Snacks: Drinks/Liquids: History/Relationship with weight Started gaining weight on his 's, as he was skinny as a teenager. In the last 10 years, the patient's Lowest weight was round 220Lbs and highest 322Lbs in November/2023. History/Relationship with dieting [place]alyanal[place]lis[place]uther on November, lost 40Lbs. He was 322Lbs when started. Been off since early March. MARIA ESTHER [place]. Social History Family history and relationship PT is in a relationship 3 years ago. PT has 2 children. father , mother alive. He has 3 older brothers. 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 Developmental history and status None reported Social support Girlfriend. some friends. Community support None. Mandaeism/Spirituality None Cultural/Ethnic information Black and Brazilian. Legal Involvement and History Current or historical involvement with the legal system? None currrently. Education Highest grade completed Associates degree in human services. Preferred learning style Learn by doing Currently enrolled in educational program? Yes (Working on his bachelors in social work) Interested in further educational program? 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 ) Meaningful activities Sports, driving, Financial Situation Describe current financial situation Comfortable and Occasional struggle Financial assistance? None Service Service? No Mental Health and Addiction Treatment Comments Alcohol: Social. A few times at week, 3-max 5. Cigarettes/Tobacco: None Cannabis/Edibles: None Psychiatric history PT started counseling around age 8, per mother's request due to family issues. Then he was mandated to attend counseling while harika [facility] custody from age 12 until 18. As an adult he has been in counseling on and off. Pt has not been in therapy in the last year. He gets prescribed by PCP Bupropion 300mg, 1 at day, for depression/anxiety Sx. PT denies ever been in crisis or inpatient for mental health. PT denies any SI/SA or safety concerns in adulthood. Some challenges as teenager. Medical and Physical Health Summary Additional Medical History not covered in history None Sexual History concerns None reported Physical exam in the last year? No Pain Screening Current pain? No Pain in the last few months? Yes Questionnaires PHQ-9 Over the last 2 weeks, how often have you been bothered by any of the following problems? 1. Little interest or pleasure in doing things: several days 2. Feeling down, depressed, or hopeless: several days 3. Trouble falling or staying asleep, or sleeping too much: more than half the days 4. Feeling tired or having little energy: more than half the days 5. Poor appetite or overeating: more than half the days 6. Feeling bad about yourself - or that you are a failure or have let yourself or your family down: several days 7. Trouble concentrating on things, such as reading the newspaper or watching television: more than half the days 8. Moving or speaking so slowly that other people could have noticed. Or the opposite - being so fidgety or restless that you have been moving around a lot more than usual: not at all 9. Thoughts that you would be better off or of hurting yourself in some way: not at all Total score: 11 Depression Screening Interpretation: Positive (From NEW PT pack scanned on 04/27/2024 - New one will be administered before finishing assessment for accurate results reflecting current state.) Depression Screening Done: Yes Source: Developed by Drs. Iraj L. GigiCherie gallegos, David Mercado and colleagues, with an educational edwige from [employer]. Binge Eating Scale Group 1 A. I don't feel self-conscious about my wt. or body size when I'm with others. B. I feel concerned about how I look to others, but it normally does not make me fell disappointed with myself C. I do get self-conscious about my appearance and wt. which makes me feel disappointed in myself. D. I feel very self-conscious about my wt. and frequently I feel intense shame and disgust for myself. I try to avoid social contacts because of my self- consciousness. Response Group 1: C Group 2 A. I don't have any difficulty eating slowly in the proper manner. B. Although I seem to gobble down foods, I don't end up feeling stuffed because of eating to much. C. At times, I tend to eat quickly and then, I feel uncomfortably full afterwards. D. I have the habit of bolting down my food, without really chewing it. When this happens I usually feel uncomfortably stuffed because I've eaten to much. Response Group 2: C Group 3 A. I feel capable to control my eating urges when I want to. B. I feel like I have failed to control my eating more than the average person. C. I feel utterly helpless when it comes to feeling in control of my eating urges. D. Because I feel so helpless about controlling my eating I have become very desperate about trying to get control. Response Group 3: B Group 4 A. I don't have the habit of eating when I'm bored. B. I sometimes eat when I'm bored, but often I'm able to get busy and get my mind off food. C. I have a regular habit of eating when I'm bored, but occasionally, I can use some other activity to get my mind off eating. D. I have a strong habit of eating when I'm bored. Nothing seems to help me breath the habit. Response Group 4: C Group 5 A. I'm usually physically hungry when I eat something. B. Occasionally, I eat something on impulse even though I really am not hungry. C. I have the regular habit of eating foods, that I might not really enjoy, to satisfy a hungry feeling even though physically, I don't need the food. D. Although I'm not physically hungry, I get a hungry feeling in my mouth that only seems to be satisfied when I eat a food, like sandwich, that fills my mouth. Sometimes, when I eat the food to satisfy my mouth hunger, I then spit the food out so I won't gain weight. Response Group 5: B Group 6 A. I don't feel any guilt or self-hate after I overeat. B. After I overeat, occasionally I feel guilt or self-hate. C. Almost all the time I experience strong guilt or self-hate after I overeat. Response Group 6: B Group 7 A. I don't lose total control of my eating when dieting even after periods when I overeat. B. Sometimes when I eat a forbidden food on a diet, I feel like I blew it and eat even more. C. Frequently, I have the habit of saying to myself, I've blown it now, why not go all the way, when I overeat on a diet. When that happens I eat more. D. I have a regular habit of starting a strict diets for myself but I break the diets by going on an eating binge. My life seems to be either a feast or famine. Response Group 7: C Group 8 A. I rarely eat so much food that I feel uncomfortably stuffed afterwards. B. Usually about once a month, I each such a quantity of food, I end up feeling very stuffed. C. I have regular periods during the month when I eat large amounts of food, either at mealtime or at snacks. D. I eat so much food that I regularly feel quite uncomfortable after eating and sometimes a bit nauseous. Response Group 8: C Group 9 A. My level of calorie intake does not go up very high or go down very low on a regular basis. B. Sometimes after I overeat, I will try to reduce my caloric intake to almost nothing to compensate for the excess calories I've eaten. C. I have a regular habit of overeating during the night. It seems that my routine is not to be hungry in the morning but overeat in the evening. D. In my adult years, I have had week-long periods where I practically starve myself. This follows periods when I overeat. It seems I live a life of either feast or famine. Response Group 9: C Group 10 A. I usually am able to stop eating when I want to. I know when enough is enough. B. Every so often, I experience a compulsion to eat which I can't seem to control. C. Frequently, I experience strong urges to eat which I seem unable to control, but at other times I can control my eating urges. D. I feel incapable of controlling urges to eat. I have a fear of not being able to stop eating voluntarily. Response Group 10: C Group 11 A. I don't have any problem stopping eating when I feel full. B. I usually can stop eating when I feel full but occasionally overeat leaving me feeling uncomfortably stuffed. C. I have a problem stopping eating once I start and usually I feel uncomfortably stuffed after I eat a meal. D. Because I have a problem not being able to stop eating when I want, I sometimes have to induce vomiting to relieve my stuffed feeling. Response Group 11: C Group 12 A. I seem to eat just as much when I'm with others, Family social gatherings as when I'm by myself. B. Sometimes, when I'm with other persons, I don't eat as much as I want to eat because I'm self-conscious about my eating. C. Frequently, I eat only a small amount of food when others are present, because I'm very embarrassed about my eating. D. I feel so ashamed about overeating that I pick times to overeat when I know no one will see me. I feel like a closet eater. Response Group 12: A Group 13 A. I eat three meals a day with only an occasional between meal snack. B. I eat 3 meals a day, but I also normally snack between meals. C. When I am snacking heavily, I get in the habit of skipping regular meals. D. There are regular periods when I seem to be continually eating, with no planned meals. Response Group 13: B Group 14 A. I don't think much about trying to control unwanted eating urges. B. At least some of the time, I feel my thoughts are pre-occupied with trying to control my eating urges. C. I feel that frequently I spend much time thinking about how much I ate or about trying not to eat anymore. D. It seems to me that most of my waking hours are pre-occupied by thoughts about eating or not eating. I feel like I'm constantly struggling not to eat. Response Group 14: A Group 15 A. I don't think about food a great deal. B. I have strong craving for food but they last only for brief periods of time. C. I have days when I can't seem to think about anything else but food. D. Most of my days seem to be pre-occupied with thoughts about food. I feel like I live to eat. Response Group 15: B Group 16 A. I usually know whether or not I'm physically hungry. I take the right portion of food to satisfy me. B. Occasionally, I feel uncertain about knowing whether or not I'm physically hungry. A these times it's hard to know how much food I should take to satisfy me. C. Even though I might know how many calories I should eat, I don't have any idea what is a normal amount of food for me. 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 He will return in 2-4 weeks to complete BH assessment, a new PHQ-9 will be administered for accurate results. So far PT seems to be a great candidate for WLS. Next ken: 06/01/2024 Coding Level of Care Code New Pt Psy Diag Braeden (22056) Patient Type New Diagnoses Depression, unspecified F32.A Major depression recurrence: recurrent Major depression episode severity: unspecified Trauma and stressor-related disorder F43.9 Time Spent (min) 60
--- OUTSIDE RECORDS SUMMARY | 2024-05-24 08:07 | XMS_ITS ---
Author Name [facility] Organization Unknown History of Medication Use Medication Directions Dispensed Refills Start Date End Date Stat us buPROPion (WELLBUTRIN XL) 150 MG 24 hr tablet TAKE 1 TABLETS DAILY. PLEASE DO NOT FILL IF NOT PICKED UP WITHIN 30 DAYS. 11/03/2023 active Problems Problem Status Onset Date Problem Type Date of Resoluti on Source Right lower quadrant abdominal pain active [facility]
== END 2024-05-19 15:02 | disposition home or self-care (01) ==
PROVIDERS: PCP Physician Assistant Medical; Visit Provider Counselor Mental Health
DX: F32.A Depression, unspecified (principal); F43.9 Reaction to severe stress, unspecified
CPT/HCPCS: 90791

== ENCOUNTER 2024-07-12 15:03 | Outpatient (AMB) | payer OTHER, SELFPAY ==
--- NOTE | 2024-07-12 15:07 | MHC.OFFVIS ---
Vital Signs 07/12/24 15:08 Height 6 ft 1 in Weight 275 lb BMI 36.3 Intake Visit Reasons: 3m follow up ELLI Intake Note: Patient presents for ELLI Allergies No Known Allergies [No Known Allergies*] Allergy (Verified 07/12/24 15:09) HPI Comments Details: 34y/o male comes for follow up of ELLI. Sleep study was done on 05/2024 Results- AHI 9 O2 danilo 74 He is using his CPAP regularly . [id number] Compliance report- 100% usage hrs-6 AHI-0.8 Sleeps better with CPAP and daytime functioning has improved. [facility] Medical History Obstructive sleep apnea of adult Hypersomnia Snoring Obesity Hepatic steatosis LFT elevation Hyperlipidemia Depression with anxiety ELLI (obstructive sleep apnea) Surgical History History of laparoscopic appendectomy H/O knee surgery S/P ACL repair Family History Mother Breast cancer Alcohol abuse Father Depression Alcohol abuse CAD (coronary artery disease) Maternal Grandmother Stomach cancer Son No problems noted. Son No problems noted. 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 Current occupational exposures/hazards: No Cognitive needs: No Hearing needs: No Vision needs: Yes Physical Exam Vital Signs: BMI result Body Mass Index 36.3 Const General: cooperative, healthy appearing and comfortable Nutritional Appearance: obese Orientation/consciousness: patient oriented x3 Neuro Other: Mallampatti -grade 4 General: patient oriented x3, gait normal, tone normal, moves all extremities and no focal motor deficits Cognition (Neuro): normal cognition Gait exam (Neuro): Normal gait present Motor exam (neuro): 5/5 motor strength present throughout and Normal motor muscle tone present throughout Assessment & Plan Assessment & Plan (1) Obstructive sleep apnea of adult: Code(s): G47.33 - Obstructive sleep apnea (adult) (pediatric) Category: Medical Plan Continue APAP 5-20 cm of water Compliance stressed Coding Level of Care Code Est Pt Level 3 (81740) Diagnoses Obstructive sleep apnea of adult G47.33
[2024-07-12 15:08] VITALS: BMI 36.3
--- OUTSIDE RECORDS SUMMARY | 2024-07-12 17:07 | XMS_ITS | Clinical Summary ---
Author Organization [facility] Address [address] [place] [address] Care Team Providers Care Policy Officer Name Role Phone Unknown Primary Care Provider [phone] Allergies No known active allergies Medications Medication Sig Dispensed Refills Start Date End Date Status buPROPion (WELLBUTRIN XL) 150 MG 24 hr tablet TAKE 1 TABLETS DAILY. PLEASE DO NOT FILL IF NOT PICKED UP WITHIN 30 DAYS. 10/01/2023 Active Active Problems No known active problems Social History Tobacco Use Types Packs/Day Years Used Date Smoking Tobacco: Never Assessed Sex and Gender Information Value Date Recorded Sex Assigned at Not on file Gender Identity Not on file Sexual Orientation Not on file Last Filed Vital Signs Vital Sign Reading Time Taken Comments Blood Pressure 116/87 11/01/2023 1:43 PM EDT Pulse 88 11/01/2023 1:43 PM EDT Temperature 36.9 ??C (98.4 ??F) 11/01/2023 1:43 PM ED T Respiratory Rate 15 11/01/2023 1:43 PM EDT Oxygen Saturation 98% 11/01/2023 1:43 PM EDT Inhaled Oxygen Concentration - - Weight - - Height - - Body Mass Index - - Plan of Treatment Health Maintenance Due Date Last Done Comments Hepatitis C Virus Screening 1990 HIV Screening 2003 DTaP/Tdap/Td Vaccines (1 - Tdap) 2009 Hepatitis B Vaccines (1 of 3 - 19+ 3-dose series) 2009 Influenza Vaccine 01/13/2024 03/15/2023 COVID-19 Vaccine (2023-2 5 season) 2024 03/15/2023, 11/04/2020, 10/14/2020 HPV Vaccines Aged Out No longer eligi ble based on patient's age to complete this topic Pneumococcal Vaccine: Pediatric (0-5 Years) and At-Risk Patients (6 to 49 Years) Aged Out No longer eligible b ased on patient's age to complete this topic Insurance Payer Benefit Plan / Group Subscriber ID Effective Dates Phone Address [facility] [id number] [address] [address] Care Teams Policy Officer Relationship Specialty Start Date End Date Unknown Unknow Provider Address PCP - General 11/01/23
== END 2024-07-12 15:25 | disposition home or self-care (01) ==
PROVIDERS: PCP Physician Assistant Medical; Visit Provider Psychiatry & Neurology Neurology
DX: G47.33 Obstructive sleep apnea (adult) (pediatric) (principal)
CPT/HCPCS: 99213

== ENCOUNTER → 2024-07-12 15:03 | Outpatient (BNVA) | payer OTHER, SELFPAY | PROVIDERS: PCP Physician Assistant Medical; Visit Provider Psychiatry & Neurology Neurology | DX: R06.83 Snoring (principal); G47.10 Hypersomnia, unspecified; G47.33 Obstructive sleep apnea (adult) (pediatric) ==

== ENCOUNTER 2024-07-17 09:58 | Outpatient (REF) | payer OTHER, SELFPAY ==
--- NOTE | ~2024-07-17 | FL_ITS ---
EXAMINATION: XR FLUOROSCOPY UPPER GI WITH AIR CLINICAL INFORMATION: Obesity due to excess calories. Preop evaluation. COMPARISON: None available. TECHNIQUE: Routine upper GI air contrast study was performed in upright and lying position. FINDINGS: Following oral administration of thick barium and effervescent granules there is normal propagation of bolus from the oral cavity through the pharynx, esophagus into stomach without any evidence of obstruction, narrowing or stricture. On placing patient supine and prone the course, caliber and peristalsis of the stomach and duodenal bulb is normal. There is mild gastroesophageal reflux without hiatal hernia. Mucosal pattern of the stomach, duodenal bulb and sweep is normal. FLUOROSCOPY TIME: 1.11 minutes DOSE AREA PRODUCT: 12 4 uGy-m2 (microgray-meter squared) FL/FL upper GI w air IMPRESSION: Mild gastroesophageal reflux without hiatal hernia. Electronically signed by: Yeyo Sanchez MD 07/17/2024 05:43 PM [facility]
--- OUTSIDE RECORDS SUMMARY | 2024-07-17 10:34 | XMS_ITS | Clinical Summary ---
Author Organization [facility] Address [address] [place] [address] Care Team Providers Care Movie Producer Name Role Phone Unknown Primary Care Provider [phone] Allergies No known active allergies Medications Medication [...] Group Subscriber ID Effective Dates Phone Address [facility] [id number] [address] [address] Care Teams Movie Producer Relationship Specialty Start Date End Date Unknown Unknow Provider Address PCP - General 11/01/23
== END 2024-07-17 09:59 | disposition home or self-care (01) ==
LOC: HO.XRAY 09:58
PROVIDERS: PCP Physician Assistant Medical; Visit Provider Surgery
DX: E66.9 Obesity, unspecified (principal); E78.2 Mixed hyperlipidemia
CPT/HCPCS: 74246

== ENCOUNTER → 2024-07-17 10:00 | Outpatient (BNV) | payer OTHER, SELFPAY | PROVIDERS: PCP Physician Assistant Medical; Visit Provider Radiology Diagnostic Radiology | DX: E66.09 Other obesity due to excess calories (principal); K21.9 Gastro-esophageal reflux disease without esophagitis | CPT/HCPCS: 74246 ==

== ENCOUNTER 2024-08-10 14:34 | Outpatient (AMB) | payer OTHER, SELFPAY ==
--- NOTE | 2024-08-10 14:36 | A.OFFPC_ITS ---
Vital Signs 08/10/24 14:39 Height 6 ft 1 in Weight 270 lb BMI 35.6 BP 112/66 Blood Pressure Location Rt brachial Position Sitting Respiration 12 Pulse 95 Pulse Source Pulse Oximeter Temp 96.8 F Temp Source Oral Pulse Oximetry (%) 98 Oxygen Delivery Method Room Air Intake Visit Reasons: Letter Of Necessity /Medication Review Intake Note: follow up on med review and letter of necessity Etymology Professor Required: No Allergies No Known Allergies [No Known Allergies*] Allergy (Verified 08/10/24 14:37) Tobacco use date assessed: 08/10/24 Dental Screening Dental Screen Date: 08/10/24 Did you have a dental visit in the last 12 months?: Yes Did you have a dental problem in the last 6 months where you did not have access to dental care?: No Was dental information given to patient?: Patient has dentist HPI HPI Comments History of Present Illness Details This is a 34-year-old male with a past medical history of vitamin-D deficiency, hepatic steatosis and elevated liver enzymes, hyperlipidemia, depression with anxiety, ELLI and obesity presenting to discuss a couple of things. He is obese. He was in the weight management program at [facility]. He is still following a healthy diet and exercising. He has a health spending account, and he needs a letter of medical necessity so that he can use the funds to purchase exercise equipment for home. He is currently on bupropion XL 300 mg daily. This helps with his anxiety symptoms and depression. In the past he tried Celexa which caused suicide ideation. Lexapro caused intolerable weight gain and sexual dysfunction. He has a therapist. The therapist referred him to a psychiatrist for possible ADHD. He was contacted to schedule the appointment, but he did not do this yet. He was nervous about going to the appointment and this possible diagnosis. Vitamin-D deficiency discovered when I was reviewing his labs from April. He is not currently on a supplement. Sleep apnea-using CPAP. ROS: Constitutional: No unexplained weight loss, fever, chills or night sweats. Neurologic: No numbness or tingling in the extremities. Musculoskeletal: No muscle pain, back pain, joint pain Psychiatric: No SI/HI. Physical exam: Constitutional: Alert, in no distress. Respiratory: Clear to auscultation. Cardiovascular: S1 S2 regular. No murmurs. Gastrointestinal: Abdomen soft, non-tender, non-distended. Normal bowel sounds. No palpable masses. Psychiatric: Normal mood and affect [facility] Medical History (Updated 08/10/24 @ 15:07 by RAPHAEL Thornton) Vitamin D deficiency Obstructive sleep apnea of adult Hypersomnia Snoring Obesity Hepatic steatosis LFT elevation Hyperlipidemia Depression with anxiety ELLI (obstructive sleep apnea) Surgical History History of laparoscopic appendectomy H/O knee surgery S/P ACL repair Family History Mother Breast cancer Alcohol abuse Father Depression Alcohol abuse CAD (coronary artery disease) Maternal Grandmother Stomach cancer Son No problems noted. Son No problems noted. 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 Current occupational exposures/hazards: No Cognitive needs: No Hearing needs: No Vision needs: Yes Questionnaire PHQ-9 Over the last 2 weeks, how often have you been bothered by any of the following problems? 1. Little interest or pleasure in doing things: not at all 2. Feeling down, depressed, or hopeless: not at all 3. Trouble falling or staying asleep, or sleeping too much: more than half the days 4. Feeling tired or having little energy: more than half the days 5. Poor appetite or overeating: not at all 6. Feeling bad about yourself - or that you are a failure or have let yourself or your family down: not at all 7. Trouble concentrating on things, such as reading the newspaper or watching television: nearly every day 8. Moving or speaking so slowly that other people could have noticed. Or the opposite - being so fidgety or restless that you have been moving around a lot more than usual: nearly every day 9. Thoughts that you would be better off or of hurting yourself in some way: not at all Total score: 10 83722 - PHQ-9 Billing: Yes Source: Developed by Drs. Iraj Yu, Cherie Valerio, David Mercado and colleagues, with an educational edwige from [employer]. Thrive Questionnaire Date Thrive assessed: 08/10/24 I am a: Patient What is your living situation today?: I have a place to live, but I am worried about losing it in the future Within the past 12 months, did the food you bought not last and you didn't have the money to get more?: Sometimes True Within the past 12 months, did you worry whether your food would run out before you got money to buy more?: Sometimes True Do you have trouble paying for medicines?: No Do you have trouble getting transportation to medical appointments?: No Do you have trouble paying your heating and electricity bill?: Yes Do you have trouble taking care of your child, family member or friend?: No Do you have trouble with day-to-day activities such as bathing, preparing meals, shopping, managing finances, etc.?: No Are you currently unemployed and looking for a job?: No Are you interested in more education?: No Please select the resources that you would like help with: None Currently or been in a relationship where the following occur: No concerns reported THRIVE Score: 4 AUDIT C Alcohol Use Questionnaire (AUDIT-C) 1. How often do you have a drink containing alcohol?: 2-3 times a week 2. How many drinks containing alcohol do you have on a typical day when you are drinking?: 1 or 2 3. How often do you have six or more drinks on one occasion?: Monthly Total Score: 5 CARRI-7 AMB Questionnaire CARRI-7 Date CARRI - 7 assessed: 08/10/24 Feeling nervous, anxious, or on edge: 3 = Nearly every day Not being able to stop or control worryin = Several days Worrying too much about different things: 1 = Several days Trouble relaxin = Nearly every day Being so restless that it is hard to sit still: 3 = Nearly every day Becoming easily annoyed or irritable: 0 = Not at all Feeling afraid as if something awful might happen: 0 = Not at all Total CARRI-7 score (0-4 normal; 5-9 mild; 10-14 moderate; 15-21 severe): 11 Source: Developed by Drs. Iraj Yu, Cherie Valerio, David Mercado and colleagues, with an educational edwige from [employer]. CARRI-7 Assessment Billing CARRI-7 Assessment Tool: CARRI-7 Assessment 57094 Physical exam (Primary Care) Vital Signs: Last Vital Signs Temp 96.8 F 08/10/24 14:39 Pulse 95 08/10/24 14:39 Resp 12 08/10/24 14:39 BP 112/66 08/10/24 14:39 Pulse Ox 98 08/10/24 14:39 Oxygen Delivery Method Room Air 08/10/24 14:39 BMI result Body Mass Index 35.6 Tobacco/Smoking Status: Tobacco use Status Tobacco use date assessed 08/10/24 08/10/24 14:41 Patient Tobacco Use Status Never used Tobacco 08/10/24 14:41 e-Cigarette/Vaping Use Never Used 08/10/24 14:41 PHQ-9: PHQ-9 Score PHQ-9: Total score 10 08/10/24 15:01 Thrive Assessment: Date of Thrive Assessment Date Thrive assessed 08/10/24 08/10/24 14:41 Currently or been in a relationship where the following occur: No concerns reported Coding Level of Care Code Est Pt Level 4 (76624) Complex EM visit Add On G2211 Diagnoses Vitamin D deficiency E55.9 Obesity due to excess calories with serious comorbidity, unspecified classification E66.09 Obesity type: due to excess calories Obesity classification: unspecified obesity classification Serious obesity comorbidity presence: with serious comorbidity Depression with anxiety F41.8 ELLI (obstructive sleep apnea) G47.33 Additional Codes CARRI-7 Assessment Billing - CARRI-7 Assessment Tool: CARRI-7 Assessment 84927 ([id number]) PHQ-9 - 85058 - PHQ-9 Billing: Yes ([id number]) Assessment & Plan Assessment & Plan (1) Vitamin D deficiency: Code(s): E55.9 - Vitamin D deficiency, unspecified Category: Medical Plan: Check vitamin-D level since labs are out of date now. We will discuss supplementation once I have the result. (2) Obesity: Code(s): E66.9 - Obesity, unspecified Category: Medical Qualifiers: Obesity type: due to excess calories Obesity classification: unspecified obesity classification Serious obesity comorbidity presence: with serious comorbidity Qualified Code(s): E66.09 - Other obesity due to excess calories Plan: Continue lifestyle modifications. I provided him with a letter of medical necessity so he can use his health spending account to purchase exercise equipment for his home. (3) Depression with anxiety: Code(s): F41.8 - Other specified anxiety disorders Category: Medical Plan: Continue therapy and bupropion. We discussed psychiatry referral. We reviewed how untreated ADHD can mimic anxiety, and it is better to get the whole diagnostic picture to maximize the efficacy of his treatment regimen. We discussed potential treatments for ADHD. He will contact the psychiatrist to schedule the consult. (4) ELLI (obstructive sleep apnea): Comment: with CPAP Code(s): G47.33 - Obstructive sleep apnea (adult) (pediatric) Category: Medical Plan: Continue efforts at weight loss, avoid sleeping supine, avoid alcohol. He is using a CPAP. Plan He has a physical exam scheduled with me during the summer. Orders: Orders Vitamin D 25-OH (D2 and D3) Today E55.9 - Vitamin D deficiency, unspecified, M85.80 - Other specified disorders of bone density and structure, unspecified site Medications: Refilled bupropion HCl XL 300 mg PO DAILY 90 tabs 1RF
[2024-08-10 14:39] VITALS: BP 112/66; PULSE 95; RESP 12; TEMP 36; O2SAT 98; BMI 35.6
--- OUTSIDE RECORDS SUMMARY | 2024-08-10 17:50 | XMS_ITS | Clinical Summary ---
Author Organization [facility] Address [address] [place] [address] Care Team Providers Care Dentist Attendant Name Role Phone Unknown Primary Care Provider [phone] Allergies No known active allergies Medications Medication [...] Group Subscriber ID Effective Dates Phone Address [facility] [id number] [address] Care Teams Dentist Attendant Relationship Specialty Start Date End Date Unknown Unknow Provider Address PCP - General 11/01/23
== END 2024-08-10 16:56 | disposition home or self-care (01) ==
PROVIDERS: PCP Physician Assistant Medical; Visit Provider Physician Assistant Medical
DX: E55.9 Vitamin D deficiency, unspecified (principal); E66.09 Other obesity due to excess calories; Z68.35 Body mass index [BMI] 35.0-35.9, adult; F41.8 Other specified anxiety disorders; G47.33 Obstructive sleep apnea (adult) (pediatric)

== ENCOUNTER → 2024-08-10 14:34 | Outpatient (BNVA) | payer OTHER, SELFPAY | PROVIDERS: PCP Physician Assistant Medical; Visit Provider Physician Assistant Medical | DX: E55.9 Vitamin D deficiency, unspecified (principal); E66.09 Other obesity due to excess calories; F41.8 Other specified anxiety disorders; G47.33 Obstructive sleep apnea (adult) (pediatric); Z99.89 Dependence on other enabling machines and devices | CPT/HCPCS: 96127 ==

== ENCOUNTER 2024-08-10 15:15 | Outpatient (REF) | payer OTHER, SELFPAY ==
--- OUTSIDE RECORDS SUMMARY | 2024-08-10 18:36 | XMS_ITS | Clinical Summary ---
Author Organization [facility] Address [address] [place] [address] Care Team Providers Care Electric Truck Operator Name Role Phone Unknown Primary Care Provider [phone] Allergies No known active allergies Medications Medication [...] Group Subscriber ID Effective Dates Phone Address [facility] [id number] [place] [address] Care Teams Electric Truck Operator Relationship Specialty Start Date End Date Unknown Unknow Provider Address PCP - General 11/01/23
[2024-08-15 23:33] LABS: Vitamin D 25-OH, D2 <4 ng/mL; Vitamin D 25-OH, D3 6 ng/mL; Vitamin D 25-OH, Total 6 ng/mL (30-100)
== END 2024-08-10 15:16 | disposition home or self-care (01) ==
LOC: HO.WFDLDS 15:15
PROVIDERS: Visit Provider Physician Assistant Medical
DX: M85.80 Other specified disorders of bone density and structure, unspecified site (principal); E55.9 Vitamin D deficiency, unspecified
CPT/HCPCS: 36415; 82306